=== PATIENT | male | born 1930 | race Caucasian/White ===

== ENCOUNTER → 2017-05-31 | Day surgery (SDC) | payer MEDICARE ==
[~2017-05-31] MED LIST: BUPIVACAINE/EPINEPHRINE 0.25% 50 ML VIAL ONE; LACTATED RINGER'S 1000 ML INJ 1,000 ML ONE; PROPOFOL 200 MG/20 ML AMP IV ONE; ceFAZolin 2 GM PREMIX 50 ML ONE
--- NOTE | 2017-05-31 12:05 | TN ---
cc: BETSY ASIF DATE OF SURGERY 05/31/2017 PREOPERATIVE DIAGNOSIS Recurrent left lower leg sarcoma. POSTOPERATIVE DIAGNOSIS Recurrent left lower leg sarcoma. 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 ATTENDING SURGEON MD Faisal CAUSE ANALYST Dre Pascual MS3. FINDINGS A 5-cm x 5-cm well encapsulated sarcoma deep to the subcutaneous planes involving tendon and muscle with grossly negative margins. BLOOD LOSS Less than 10 cc. 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 The patient previously underwent resection of a sarcoma as well as resection of recurrence several years ago. The patient developed a local recurrence and was referred to Surgical Oncology for evaluation and possible resection. Chest x-ray showed no evidence of distant metastasis. I had discussion with the patient's family due to the patient's dementia and palliative care goals. They did not wish for a curative intent but rather palliative resection as the tumor was enlarging and causing the patient discomfort. I did recommend resection due to the propensity of the tumor to continue to grow and cause increasing symptoms, negatively affecting the patient's quality of life. I did recommend complete resection to decrease local recurrence and to further palliate the patient. The risks, benefits and alternatives were discussed with the family and they agreed to undergo the procedure. PROCEDURE The patient was taken to the operating room at the [facility] and placed under TIVA. The left lower extremity was prepped and draped in sterile fashion. Time-out was performed. The area of the planned excision was localized with 0.25% Marcaine with epinephrine. A small elliptical incision approximately 6 cm was made in line with the leg over the area of the proximal mass distal to the lateral tibial plateau. We dissected down to the subcutaneous tissue and to the fascia with the Bovie electrocautery. We did excise some overlying fascia and muscle over the lateral compartment and all the tumor. We had grossly negative margins and we completely resected this with the Bovie electrocautery. This was again well encapsulated, was 5-cm x 5-cm in size. We did irrigate out the cavity and all suctioning was clear. We did turn our attention towards closure. We placed 3-0 deep dermal Vicryl sutures followed by 4-0 Monocryl and Dermabond on the skin. We placed an Mike wrap and a bandage as well as hemostatic dressing. The patient was reversed from the anesthesia and taken to the PACU in stable condition. The patient tolerated the procedure well. No apparent complications. All counts were correct. I was present and scrubbed for the entire procedure. MD MARZENA Jerome/SSB /11:40 AM /11:57 AM
== END | disposition home or self-care (01) ==
LOC: ESDC 08:09
PROVIDERS: ATTEND Surgery
DX: C44.709 Unspecified malignant neoplasm of skin of left lower limb, including hip (principal)
CPT/HCPCS: 01470; 27616; 88307; J0690; J3010; J7120; 88305

== ENCOUNTER 2017-07-15 17:52 | Inpatient (IN) | payer MEDICARE ==
[~2017-07-15] VITALS: Ht 167.6 cm; Wt 73.4 kg
[2017-07-15 18:49] VITALS: BP 162/68; PULSE 53; RESP 20; TEMP 98.6; O2SAT 98
[2017-07-15 19:28] LABS: BASOPHIL % 0.4 % (0.0-2.0); EOSINOPHIL % 0.1 % (0.0-4.0); HEMATOCRIT 42.9 % (39.0-51.0); HEMO FLAGS DIFF FINAL; LYMPH % 3.8 % (9.0-44.0); LYMPHOCYTE # 0.4 TH/MM3 (1.0-4.8); MEAN CELL VOLUME 95.7 FL (80.0-100.0); MEAN CORPUSCULAR HEMOGLOBIN 31.6 PG (27.0-34.0); MEAN CORPUSCULAR HGB CONC 33.1 % (32.0-36.0); MONO % 7.5 % (0.0-8.0); NEUT % 88.2 % (16.0-70.0); PLATELET COUNT 116 TH/MM3 (150-450); RED BLOOD COUNT 4.48 MIL/MM3 (4.50-5.90); WHITE BLOOD COUNT 11.3 TH/MM3 (4.0-11.0)
[2017-07-15] MEDS ORDERED: ZOLO50TA PO (19:39)
[2017-07-15] MEDS ORDERED: PROS5TAB PO (19:39)
[2017-07-15] MEDS ORDERED: NAME10TA PO (19:39)
[2017-07-15] MEDS ORDERED: TAMS0.4C4 PO (19:39)
[2017-07-15] MEDS ORDERED: ARIC10TA2 PO (19:39)
[2017-07-15 19:45] LABS: ANION GAP 6 MEQ/L (5-15); BICARBONATE 27.7 MEQ/L (21.0-32.0); BLOOD UREA NITROGEN 20 MG/DL (7-18); CHLORIDE 110 MEQ/L (98-107); GLOMERULAR FILTRATION RATE 77 ML/MIN (>89); MAGNESIUM 1.9 MG/DL (1.5-2.5); POTASSIUM 3.8 MEQ/L (3.5-5.1); SODIUM (NA) 144 MEQ/L (136-145)
[2017-07-15 19:54] LABS: APTT (PATIENT) 23.2 SEC (24.3-30.1); INTERNATIONAL NORMALIZED RATIO 1.1 RATIO; PROTHROMBIN TIME - PATIENT 12.3 SEC (9.8-11.6)
[2017-07-15 20:01] LABS: CREATINE KINASE 269 U/L (39-308)
--- NOTE | 2017-07-15 20:08 | PD ---
HPI Chief Complaint: Fall Time Seen by Provider: 18:53 Travel History International Travel<30 days: No Contact w/Intl Traveler<30days: No Traveled to known affect area: No History of Present Illness HPI 86-year-old male that presents to the ED for evaluation of fall. Patient comes here by ambulance for evaluation of fall. Patient had an unwitnessed fall while going from his room to the bathroom. Unclear as to what happened as patient has a history dementia and cannot really tell us any information about it. He was found by one of the staff members at the [facility] where he stays. He was brought here for evaluation. He does have skin tears to his elbows bilaterally and has bruising on the left shoulder as well as the left wrist. Patient also has a small abrasion to his left eyebrow. He does not remember what happened. He states having some chest discomfort as well but when I asked him personally he states that he does not. This was told by the family member who is at bedside. He has a history of dementia and lives in the [facility] for care. He has no other medical issues. He usually ambulates with some assistance. He does have bad knees. Patient takes no blood thinners. Unclear as to hold him he was on the floor before the found him. He denies any other medical issues. History is mostly obtained from the ED nurse as well as family members patient himself is not a good historian. He himself denies any pain. PFSH Social History Alcohol Use: No Tobacco Use: No Substance Use: No Allergies-Medications (Allergen,Severity, Reaction): Coded Allergies: No Known Allergies (Unverified , 07/15/17) Reported Meds & Prescriptions Reported Meds & Active Scripts Active Reported Namenda (Memantine) 10 Mg Tab 10 Mg PO BID Zoloft (Sertraline HCl) 50 Mg Tab 50 Mg PO DAILY Aricept (Donepezil HCl) 10 Mg Tablet 10 Mg PO DAILY Proscar (Finasteride) 5 Mg Tab 5 Mg PO DAILY Do not crush. Tamsulosin (Tamsulosin HCl) 0.4 Mg Cap 0.4 Mg PO DAILY Review of Systems Except as stated in HPI: all other systems reviewed are Neg Physical Exam Narrative GENERAL: SKIN: Warm and dry. Patient has bilateral skin tears on both elbows bilaterally. Some bleeding noted. Neurovascular intact. Skin there is a less than 1 mm deep. Full range of motion of the elbows bilaterally. HEAD: Atraumatic. Normocephalic. EYES: Pupils equal and round. No scleral icterus. No injection or drainage. ENT: No nasal bleeding or discharge. Mucous membranes pink and moist. Tongue is midline. No uvula deviation. NECK: Trachea midline. No JVD. CARDIOVASCULAR: Regular rate and rhythm. No murmurs, S3, S4. RESPIRATORY: No accessory muscle use. Clear to auscultation. Breath sounds equal bilaterally. GASTROINTESTINAL: Abdomen soft, non-tender, nondistended. Hepatic and splenic margins not palpable. MUSCULOSKELETAL: Extremities without clubbing, cyanosis, or edema. No obvious deformities. Full range of motion of the upper and lower extremities bilaterally. 2+ pulses bilaterally. Patient has a bruise to the left wrist as well as to the left shoulder but able to move it fully. No obvious rib pain. No lumbar, thoracic, cervical spine tenderness to palpation. Full range of motion of the head. Full range of motion lower extremities. No obvious deformities or bruising noted on the lower extremities. NEUROLOGICAL: Awake and alert. No obvious cranial nerve deficits. Motor grossly within normal limits. Five out of 5 muscle strength in the arms and legs. Normal speech. PSYCHIATRIC: Appropriate mood and affect; insight and judgment normal. Data Data Last Documented VS Vital Signs Date Time Temp Pulse Resp B/P (MAP) Pulse Ox O2 Delivery O2 Flow Rate FiO2 07/15/17 18:49 98.6 53 20 162/68 (99) 98 Orders Orders Complete Blood Count With Diff (07/15/17 18:59) Basic Metabolic Panel (Bmp) (07/15/17 18:59) Ckmb (Isoenzyme) Profile (07/15/17 18:59) Troponin I (07/15/17 18:59) Prothrombin Time / Inr (Pt) (07/15/17 18:59) Act Partial Throm Time (Ptt) (07/15/17 18:59) Magnesium (Mg) (07/15/17 18:59) Thyroid Stimulating Hormone (07/15/17 18:59) Chest, Single Ap (07/15/17 18:59) Ct Brain W/O Iv Contrast(Rout) (07/15/17 18:59) Iv Access Insert/Monitor (07/15/17 18:59) Ecg Monitoring (07/15/17 18:59) Oximetry (07/15/17 18:59) Ct Cerv Spine W/O Contrast (07/15/17 ) Wrist, Complete (Cgt3gyr) (07/15/17 ) Elbow, Limited (Ap&Lat) (07/15/17 ) Elbow, Complete (4 Vws) (07/15/17 ) Shoulder, Complete (>2vws) (07/15/17 ) Pelvis, Ap Only (Routine) (07/15/17 ) Wound Care (07/15/17 19:02) CKMB (07/15/17 19:10) CKMB% (07/15/17 19:10) Electrocardiogram (07/15/17 ) Ct Thorax/ Chest W Iv Contrast (07/15/17 ) Admit Order (Ed Use Only) (07/15/17 21:59) Memantine (Namenda) (07/16/17 09:00) Tamsulosin (Flomax) (07/16/17 09:00) (Nf) Donepezil Hcl (Aricept) (07/16/17 09:00) Labs Laboratory Tests Test 07/15/17 19:10 White Blood Count 11.3 TH/MM3 Red Blood Count 4.48 MIL/MM3 Hemoglobin 14.2 GM/DL Hematocrit 42.9 % Mean Corpuscular Volume 95.7 FL Mean Corpuscular Hemoglobin 31.6 PG Mean Corpuscular Hemoglobin Concent 33.1 % Red Cell Distribution Width 15.0 % Platelet Count 116 TH/MM3 Mean Platelet Volume 10.0 FL Neutrophils (%) (Auto) 88.2 % Lymphocytes (%) (Auto) 3.8 % Monocytes (%) (Auto) 7.5 % Eosinophils (%) (Auto) 0.1 % Basophils (%) (Auto) 0.4 % Neutrophils # (Auto) 10.0 TH/MM3 Lymphocytes # (Auto) 0.4 TH/MM3 Monocytes # (Auto) 0.9 TH/MM3 Eosinophils # (Auto) 0.0 TH/MM3 Basophils # (Auto) 0.0 TH/MM3 CBC Comment DIFF FINAL Differential Comment Prothrombin Time 12.3 SEC Prothromb Time International Ratio 1.1 RATIO Activated Partial Thromboplast Time 23.2 SEC Blood Urea Nitrogen 20 MG/DL Creatinine 0.93 MG/DL Random Glucose 88 MG/DL Calcium Level 9.0 MG/DL Magnesium Level 1.9 MG/DL Sodium Level 144 MEQ/L Potassium Level 3.8 MEQ/L Chloride Level 110 MEQ/L Carbon Dioxide Level 27.7 MEQ/L Anion Gap 6 MEQ/L Estimat Glomerular Filtration Rate 77 ML/MIN Total Creatine Kinase 269 U/L Creatine Kinase MB 2.7 NG/ML Troponin I 0.12 NG/ML Thyroid Stimulating Hormone 3rd Gen 1.320 uIU/ML MDM Medical Decision Making Medical Screen Exam Complete: Yes Emergency Medical Condition: Yes Medical Record Reviewed: Yes Interpretation(s) CBC & BMP Diagram 07/15/17 19:10 Calcium Level 9.0, Magnesium Level 1.[address] 07/15/17 1859 Signed Impressions: Service Date/Time: Saturday, July 15, 2017 19:34 - CONCLUSION: 1. No acute abnormalities seen. 2. Chronic atrophy and a small area of encephalomalacia at the medial left temporal lobe. Lawrence Bruno MD Wrist X-Ray 07/15/17 0000 Signed Impressions: Service Date/Time: Saturday, July 15, 2017 19:16 - CONCLUSION: No acute disease. Lawrence Bruno MD Shoulder X-Ray 07/15/17 0000 Signed Impressions: Service Date/Time: Saturday, July 15, 2017 19:25 - CONCLUSION: No acute disease. Lawrence Bruno MD Pelvis X-Ray 07/15/17 0000 Signed Impressions: Service Date/Time: Saturday, July 15, 2017 19:30 - CONCLUSION: No definite acute abnormality seen. Lawrence Bruno MD Elbow X-Ray 07/15/17 0000 Signed Impressions: Service Date/Time: Saturday, July 15, 2017 19:18 - CONCLUSION: Unremarkable examination of the left elbow. Lawrence Bruno MD Elbow X-Ray 07/15/17 0000 Signed Impressions: Service Date/Time: Saturday, July 15, 2017 19:23 - CONCLUSION: No acute disease. Lawrence Bruno MD Cervical Spine CT 07/15/17 0000 Signed Impressions: Service Date/Time: Saturday, July 15, 2017 19:34 - CONCLUSION: 1. No acute bony injury is seen. 2. Degenerative change involving the facet joints at multiple levels. Lawrence Bruno MD EKG shows atrial fib but no in RVR. No sign of acute ischemia or arrythmia read by me and attending. Troponin of 0.12 CK neg Differential Diagnosis Fall versus syncope versus head injury versus ACS versus dementia versus normal exam versus fracture versus contusion versus bruise Narrative Course 86-year-old male that presents to the ED for evaluation of fall. Patient was properly examined and was found to have signs and symptoms consistent with fall. Unclear syncope or not as patient is about historian. Labs and imaging were ordered. Labs and imaging showed positive troponin and mass to the right chest. Case discussed in my attending who agrees with admission. This was discussed with the family who is in agreement with this. Patient had his wound to his left eyebrow fixed by me as stated in procedure note. Wound care was done by ED nurse. CT of the thorax was ordered by me to further evaluate this mass in the right lung as family is not aware of anything on the chest x-ray. Per family he actually had a chest x-ray recently and was negative. 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 Case discussed with nurse practitioner for [facility] as well agrees to admission. Patient was admitted. Diagnosis Primary Impression: Syncope Qualified Codes: R55 - Syncope and collapse Additional Impressions: Head injury, acute Qualified Codes: S09.90XA - Unspecified injury of head, initial encounter Eyebrow laceration Qualified Codes: S01.112A - Laceration without foreign body of left eyelid and periocular area, initial encounter Skin tear of elbow without complication Qualified Codes: S51.011A - Laceration without foreign body of right elbow, initial encounter Skin tear of left elbow without complication Qualified Codes: S51.012A - Laceration without foreign body of left elbow, initial encounter Mass of right lung Fall Qualified Codes: W19.XXXA - Unspecified fall, initial encounter Elevated troponin Admitting Information Admitting Physician Requests: Admit Ayo Gyu Jul 15, 2017 20:08
[2017-07-15 20:14] LABS: CKMB 2.7 NG/ML (0.5-3.6)
--- NOTE | 2017-07-15 20:37 | RADRPT ---
EXAM DATE/TIME: 07/15/2017 19:16 [facility] COMPARISON: No previous studies available for comparison. INDICATIONS : Left wrist pain, bruising post fall today MEDICAL HISTORY : None. SURGICAL HISTORY : None. ENCOUNTER: Initial ACUITY: 1 day PAIN SCORE: 5/10 LOCATION: Left entire wrist FINDINGS: Three view examination of the left wrist demonstrates no soft tissue swelling, dislocation, or fractu re. The carpal bones are in normal alignment. The joint spaces are maintained. The bones are osteop enic. CONCLUSION: No acute disease. Lawrence Bruno MD on July 15, 2017 at 20:34 Board Certified Radiologist. This report was verified electronically.
--- NOTE | 2017-07-15 20:37 | RADRPT ---
EXAM DATE/TIME: 07/15/2017 19:18 [facility] COMPARISON: No previous studies available for comparison. INDICATIONS : Left elbow pain post fall today MEDICAL HISTORY : None. SURGICAL HISTORY : None. ENCOUNTER: Initial ACUITY: 1 day PAIN SCORE: 5/10 LOCATION: Left posterior elbow FINDINGS: Multiple view examination of the left elbow demonstrates no soft tissue swelling, joint effusion, or fracture. The osseous structures are in normal alignment. Bony mineralization is normal. CONCLUSION: Unremarkable examination of the left elbow. Lawrence Bruno MD on July 15, 2017 at 20:35 Board Certified Radiologist. This report was verified electronically.
--- NOTE | 2017-07-15 20:42 | RADRPT ---
EXAM DATE/TIME: 07/15/2017 19:23 [facility] COMPARISON: No previous studies available for comparison. INDICATIONS : Right elbow pain post fall today MEDICAL HISTORY : None. SURGICAL HISTORY : None. ENCOUNTER: Initial ACUITY: 1 day PAIN SCORE: 5/10 LOCATION: Right posterior elbow FINDINGS: Two view examination of the right elbow demonstrates no soft tissue swelling, joint effusion, fractur e or dislocation. The bones are osteopenic. CONCLUSION: No acute disease. Lawrence Bruno MD on July 15, 2017 at 20:39 Board Certified Radiologist. This report was verified electronically.
--- NOTE | 2017-07-15 20:42 | RADRPT ---
EXAM DATE/TIME: 07/15/2017 19:25 [facility] COMPARISON: No previous studies available for comparison. INDICATIONS : Left shoulder pain post fall today MEDICAL HISTORY : None. SURGICAL HISTORY : None. ENCOUNTER: Initial ACUITY: 1 day PAIN SCORE: 4/10 LOCATION: Left entire shoulder FINDINGS: Multiple view examination of the left shoulder demonstrates no evidence of fracture or dislocation. The glenohumeral and acromioclavicular joints are maintained. There is normal range of motion betwee n internal and external rotation. The bones are osteopenic. CONCLUSION: No acute disease. Lawrence Bruno MD on July 15, 2017 at 20:40 Board Certified Radiologist. This report was verified electronically.
--- NOTE | 2017-07-15 20:45 | RADRPT ---
EXAM DATE/TIME: 07/15/2017 19:14 [facility] COMPARISON: No previous studies available for comparison. INDICATIONS : Trauma to chest postfall today MEDICAL HISTORY : None. SURGICAL HISTORY : None. ENCOUNTER: Initial ACUITY: 1 day PAIN SCORE: 0/10 LOCATION: Bilateral chest FINDINGS: The patient is rotated towards the left. The heart size is grossly normal. The lungs d emonstrate diffuse increased interstitial markings. There is further increased density seen at the l eft base with silhouetting of the left hemidiaphragm. There also appears to be some increased density seen at the right upper lung. CONCLUSION: 1. Diffuse prominence of the interstitial markings likely representing underlying interstitial diseas e or edema. 2. Increased density at the left base representing some degree of atelectasis or consolidation. Some degree of left effusion cannot be excluded. 3. Possible focal consolidation or mass in the right upper lung. This should be followed with future chest x-rays and further evaluated with a CT examination if it persists. Lawrence Bruno MD on July 15, 2017 at 20:33 Board Certified Radiologist. This report was verified electronically.
--- NOTE | 2017-07-15 20:49 | RADRPT ---
EXAM DATE/TIME: 07/15/2017 19:30 [facility] COMPARISON: No previous studies available for comparison. INDICATIONS : Trauma to pelvis post fall today MEDICAL HISTORY : None. SURGICAL HISTORY : ORIF left hip ENCOUNTER: Initial ACUITY: 1 day PAIN SCORE: 0/10 LOCATION: Pelvis FINDINGS: A single frontal view of the pelvis demonstrates no evidence of fracture. There is surgical hardware at the proximal left femur from prior injury. There is degenerative change in the lower lumbar spine . The bones are osteopenic. The bony pelvic ring is intact. The soft tissues are intact. CONCLUSION: No definite acute abnormality seen. Lawrence Bruno MD on July 15, 2017 at 20:47 Board Certified Radiologist. This report was verified electronically.
--- NOTE | 2017-07-15 20:52 | RADRPT ---
EXAM DATE/TIME: 07/15/2017 19:34 [facility] COMPARISON: No previous studies available for comparison. INDICATIONS : Trauma; fall. RADIATION DOSE: 39.12 CTDIvol (mGy) MEDICAL HISTORY : None SURGICAL HISTORY : None. ENCOUNTER: Initial ACUITY: 1 day PAIN SCALE: 6/10 LOCATION: cranial TECHNIQUE: Multiple contiguous axial images were obtained of the head. Using automated exposure control and adj ustment of the mA and/or kV according to patient size, radiation dose was kept as low as reasonably a chievable to obtain optimal diagnostic quality images. DICOM format image data is available electro nically for review and comparison. FINDINGS: CEREBRUM: The ventricles and cortical sulci are widened. There is a focal area of encephalomalacia at the infer ior medial left temporal lobe. The there is a possible area mild this ablation of the superior medial left parietal lobe versus a prominent sulcus in this region. There does appear to be a thin rim of g ray matter suggesting this is likely a prominent sulcus. No evidence of midline shift, mass lesion, hemorrhage or acute infarction. No extra-axial fluid collections are seen. POSTERIOR FOSSA: The cerebellum and brainstem are intact. The 4th ventricle is midline. The cerebellopontine angle i s unremarkable. EXTRACRANIAL: The visualized portion of the orbits is intact. There is mucosal disease in the posterior right maxil laci sinus. SKULL: The calvaria is intact. No evidence of skull fracture. CONCLUSION: 1. No acute abnormalities seen. 2. Chronic atrophy and a small area of encephalomalacia at the medial left temporal lobe. Lawrence Bruno MD on July 15, 2017 at 20:48 Board Certified Radiologist. This report was verified electronically.
--- NOTE | 2017-07-15 20:56 | RADRPT ---
EXAM DATE/TIME: 07/15/2017 19:34 [facility] COMPARISON: No previous studies available for comparison. INDICATIONS : Trauma; fall. RADIATION DOSE: 21.34 CTDIvol (mGy) MEDICAL HISTORY : None SURGICAL HISTORY : None. ENCOUNTER: Initial ACUITY: 1 day PAIN SCALE: 4/10 LOCATION: neck TECHNIQUE: Volumetric scanning of the cervical spine was performed. Multiplanar reconstructions in the sagittal, coronal and oblique axial planes were performed. Using automated exposure control and adjustment o f the mA and/or kV according to patient size, radiation dose was kept as low as reasonably achievable to obtain optimal diagnostic quality images. DICOM format image data is available electronically f or review and comparison. FINDINGS: VERTEBRAE: Normal vertebral body height. ALIGNMENT: No evidence of subluxation. C2-C3: The bony spinal canal is normal in size. No evidence of disc bulge or herniation. The neural forami na are bilaterally patent. There is right facet hypertrophy. C3-C4: The bony spinal canal is normal in size. No evidence of disc bulge or herniation. There is left fac et hypertrophy causing narrowing of the left neural foramina. The right neural foramen is patent. C4-C5: The bony spinal canal is normal in size. No evidence of disc bulge or herniation. The neural forami na are bilaterally patent. There is bilateral facet hypertrophy. C5-C6: The bony spinal canal is normal in size. No evidence of disc bulge or herniation. The neural forami na are bilaterally patent. There is bilateral facet hypertrophy. C6-C7: The bony spinal canal is normal in size. No evidence of disc bulge or herniation. The neural forami na are bilaterally patent. There is bilateral facet hypertrophy being worse on the left. C7-T1: The bony spinal canal is normal in size. No evidence of disc bulge or herniation. The neural forami na are bilaterally patent. There is bilateral facet hypertrophy. CONCLUSION: 1. No acute bony injury is seen. 2. Degenerative change involving the facet joints at multiple levels. Lawrence Bruno MD on July 15, 2017 at 20:51 Board Certified Radiologist. This report was verified electronically.
[2017-07-15] MEDS ORDERED: IOHEXOL 350 MG/ML 10 ML VIAL (for RAD DIAG) IVCONTRAST ONE (22:31)
--- NOTE | 2017-07-15 23:16 | RADRPT ---
EXAM DATE/TIME: 07/15/2017 22:24 [facility] COMPARISON: No previous studies available for comparison. INDICATIONS : Trauma; fall. IV CONTRAST: 80 cc Omnipaque 350 (iohexol) IV RADIATION DOSE: 5.10 CTDIvol (mGy) MEDICAL HISTORY : None SURGICAL HISTORY : None. ENCOUNTER: Initial ACUITY: 1 day PAIN SCALE: 5/10 LOCATION: chest TECHNIQUE: Volumetric scanning of the chest was performed. Using automated exposure control and adjustment of t he mA and/or kV according to patient size, radiation dose was kept as low as reasonably achievable to obtain optimal diagnostic quality images. DICOM format image data is available electronically for review and comparison. Follow-up recommendations for detected pulmonary nodules are based at a minimum on nodule size and pa tient risk factors according to Fleischner Society Guidelines. FINDINGS: There is bilateral pleural thickening and trace loculated right pleural effusion posteriorly. There i s also a small loculated left pleural effusion extending into the upper left hemithorax, probably chr onic. No acute bony abnormalities. Moderate coronary calcifications. No significant pericardial fluid . No acute findings in the upper abdomen. CONCLUSION: 1. Negative for acute traumatic injury in the thorax. 2. Bilateral chronic appearing pleural thickening and small loculated areas of pleural fluid. 3. Moderate coronary calcifications. Bones are osteopenic. Mynor Porras MD on July 15, 2017 at 23:12 Board Certified Radiologist. This report was verified electronically.
[2017-07-15] MEDS ORDERED: LACTULOSE SYRUP 20 GM/30 ML CUP PO PRN (23:45)
[2017-07-15] MEDS ORDERED: SENNOSIDES 8.6 MG TAB PO PRN (23:45)
[2017-07-15] MEDS ORDERED: NALOXONE HCL 0.4 MG/ML AMP IV PRN (23:45)
[2017-07-15] MEDS ORDERED: MAGNESIUM HYDROXIDE SUSP 30 ML CUP PO PRN (23:45)
[2017-07-15] MEDS ORDERED: SODIUM CHLORIDE 0.9% FLUSH 10 ML FLUSH IV FLUSH PRN (23:45)
[2017-07-15] MEDS ORDERED: ONDANSETRON HCL 4 MG/2 ML VIAL IVP PRN (23:45)
[2017-07-15] MEDS ORDERED: BISACODYL 10 MG SUPP RECTAL PRN (23:45)
[2017-07-15 23:48] VITALS: BP 134/71
[2017-07-16] VITALS (7 sets, daily range): BP systolic 101–164; BP diastolic 52–77; PULSE 43–63; RESP 16–20; TEMP 97–98; O2SAT 92–96
[2017-07-16] MEDS: SODIUM CHLOR 0.9% 1000 ML INJ 1,000 ML IV SCH ×3 (00:58→18:43)
[2017-07-16 07:20] LABS: AUTOMATED NEUTROPHIL # 5.3 TH/MM3 (1.8-7.7); BASOPHIL % 0.7 % (0.0-2.0); EOSINOPHIL % 0.4 % (0.0-4.0); HEMATOCRIT 42.2 % (39.0-51.0); HEMO FLAGS DIFF FINAL; LYMPH % 8.9 % (9.0-44.0); LYMPHOCYTE # 0.6 TH/MM3 (1.0-4.8); MEAN CELL VOLUME 94.5 FL (80.0-100.0); MEAN CORPUSCULAR HEMOGLOBIN 31.9 PG (27.0-34.0); MEAN CORPUSCULAR HGB CONC 33.7 % (32.0-36.0); MONO % 10.9 % (0.0-8.0); NEUT % 79.1 % (16.0-70.0); PLATELET COUNT 123 TH/MM3 (150-450); RED BLOOD COUNT 4.46 MIL/MM3 (4.50-5.90); RED CELL DISTRIBUTION WIDTH 14.7 % (11.6-17.2); WHITE BLOOD COUNT 6.7 TH/MM3 (4.0-11.0)
[2017-07-16 07:40] LABS: BICARBONATE 27.5 MEQ/L (21.0-32.0); POTASSIUM 3.7 MEQ/L (3.5-5.1)
[2017-07-16] MEDS: SODIUM CHLORIDE 0.9% FLUSH 10 ML FLUSH IV FLUSH SCH ×2 (09:00→20:26)
[2017-07-16] MEDS ORDERED: DONEPEZIL HCL 5 MG TAB PO SCH (09:00)
[2017-07-16] MEDS ORDERED: MEMANTINE HCL 10 MG TAB PO SCH (09:00)
[2017-07-16] MEDS: DOCUSATE SODIUM 50 MG/SENNA 8.6 MG TAB PO SCH ×2 (09:21→20:26)
[2017-07-16] MEDS: TAMSULOSIN HCL 0.4 MG CAP PO SCH (09:21)
--- NOTE | 2017-07-16 09:26 | EKG ---
Date Performed: 07/15/2017 Time Performed: 20:17:49 PTAGE: 86 years EKG: ATRIAL FIBRILLATION WITH SLOW VENTRICULAR RESPONSE BORDERLINE LEFT AXIS DEVIATION ABNORMAL RHYTHM ECG NO PREVIOUS TRACING DOCTOR: Carlo Tanner Interpretating Date/Time 07/16/2017 09:26:02
--- NOTE | 2017-07-16 10:20 | HHI.HP ---
HPI Service [facility] Primary Care Physician David Alex, DO Admission Diagnosis fall, syncope, positive troponin, skin tears Diagnoses: Chief Complaint: fall, syncope (Lara Hassan) Travel History International Travel<30 Days: No Contact w/Intl Traveler <30 Da: No Traveled to Known Affected Are: No (Lara Hassan) History of Present Illness This is a pleasant 86-year-old elderly male who is a resident from an assisted living facility, has significant past medical history of dementia and sarcoma. Patient was brought in via ambulance for evaluation of fall. Fall wasn't witnessed, it occur while patient was in his room going to the bathroom. Patient is not able to provide any information as he has dementia. He was found by staff members. Patient had abrasions to his elbows and bruising to the left shoulder and left wrist. He also had an abrasion to his left eyebrow. He denies any chest pain, no shortness of breath. His only complaint at this time is the left hand. In the emergency room, patient was evaluated laboratory workup was completed. He was noted with an elevated troponin. The rest of the laboratory workup was essentially unremarkable. Chest x-ray show possibility of a focal consolidation or mass in the right upper lung. A CT of the chest was completed, no mass was noted, there are bilateral chronic appearing pleural thickening and small loculated areas of pleural fluid. Moderate coronary calcifications. CT of the head was negative. EKG was completed, a shows atrial fibrillation with slow ventricular response. Throughout the night, heart rate has dropped down to 38. I spoke to the patient's son-in-law who endorses that patient typically runs a slow heart rate of 50s, has never seen a manager water. Denies any history of coronary artery disease, no dysrhythmia. Patient is not on any beta blockers, he is on Aricept and Namenda. At this time , patient is pleasantly confused, he denies any chest pain, no shortness of breath, no dizziness. Follows commands appropriately. According to the son-in- law, other than the dementia the patient has been very healthy. Patient is admitted for further evaluation and treatment. (Lara Hassan) Review of Systems ROS Limitations: Clinical Condition, Altered Mental Status, Poor Historian (Lara Hassan) Past Family Social History Past Medical History Dementia Sarcoma BPH Runs low heart rate 50s. Has never seen a manager water. 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 Tamsulosin (Tamsulosin HCl) 0.4 Mg Cap 0.4 Mg PO DAILY (Lara Hassan) Allergies: Coded Allergies: No Known Allergies (Unverified , 07/15/17) Active Ordered Medications Inpatient Medications Bisacodyl (Dulcolax Supp) 10 mg DAILY PRN RECTAL SEVERE CONSITIPATION; Start at 23:45 Donepezil HCl (Aricept) 10 mg DAILY PO ; Start 07/16/17 at 09:00 Lactulose (Lactulose Liq) 30 ml DAILY PRN PO SEVERE CONSITIPATION; Start at 23:45 Magnesium Hydroxide (Milk Of Magnesia Liq) 30 ml Q12H PRN PO MILD - MODERATE CONSTIPATION; Start 07/15/17 at 23:45 Memantine (Namenda) 10 mg BID PO Last administered on 07/16/17 09:21; Start 07/16/17 at 09:00 Naloxone HCl (Narcan Inj) 0.4 mg UNSCH PRN IV SEE LABEL COMMENTS; Start at 23:45 Ondansetron HCl (Zofran Inj) 4 mg Q6H PRN IVP NAUSEA OR VOMITING; Start at 23:45 Senna/Docusate Sodium (Brigitte-Colace) 1 tab BID PO Last administered on 07/16/17 09:21; Start 07/16/17 at 09:00 Sennosides (Senokot) 17.2 mg Q12H PRN PO MODERATE - SEVERE CONSTIPATION; Start 07/15/17 at 23:45 Sodium Chloride (NS Flush) 2 ml BID IV FLUSH ; Start 07/16/17 at 09:00 Tamsulosin HCl (Flomax) 0.4 mg DAILY PO Last administered on 07/16/17t 09:21; Start 07/16/17 at 09:00 Family History Unable to obtain Social History Patient resides at a correction facility, patient quit smoking many years ago. No alcohol, no substance abuse. Patient is a . Has grown children who live nearby and are very supportive. (Lara Hassan) Physical Exam Vital Signs Vital Signs Date Time Temp Pulse Resp B/P (MAP) Pulse Ox O2 Delivery O2 Flow Rate FiO2 07/16/17 08:00 97.0 45 16 106/59 (75) 92 07/16/17 04:00 97.5 45 20 142/64 (90) 95 07/16/17 00:35 97.6 51 20 164/77 (106) 96 07/15/17 23:48 50 18 134/71 (92) 97 07/15/17 18:49 98.6 53 20 162/68 (99) 98 Physical Exam GENERAL: This is a well-nourished, well-developed patient, in no apparent distress. SKIN: Bruises upper arms, left forehead, laceration left eyebrow with steristrip. Skin tear right elbow HEAD: Atraumatic. Normocephalic. No temporal or scalp tenderness. EYES: Pupils equal round and reactive. Extraocular motions intact. No scleral icterus. No injection or drainage. ENT: Nose without bleeding, purulent drainage or septal hematoma. Throat without erythema, tonsillar hypertrophy or exudate. Uvula midline. Airway patent. NECK: Trachea midline. No JVD or lymphadenopathy. Supple, nontender, no meningeal signs. CARDIOVASCULAR: Regular rate and rhythm without murmurs, gallops, or rubs. RESPIRATORY: Clear to auscultation. Breath sounds equal bilaterally. No wheezes , rales, or rhonchi. GASTROINTESTINAL: Abdomen soft, non-tender, nondistended. No hepato-splenomegaly , or palpable masses. No guarding. MUSCULOSKELETAL: Bruising left hand, swelling of left hand small finger. NEUROLOGICAL: awake, oriented to self and place. Demented. Laboratory Laboratory Tests Test 07/15/17 19:10 07/16/17 01:19 07/16/17 06:29 White Blood Count 11.3 6.7 Red Blood Count 4.48 4.46 Hemoglobin 14.2 14.2 Hematocrit 42.9 42.2 Mean Corpuscular Volume 95.7 94.5 Mean Corpuscular Hemoglobin 31.6 31.9 Mean Corpuscular Hemoglobin Concent 33.1 33.7 Red Cell Distribution Width 15.0 14.7 Platelet Count 116 123 Mean Platelet Volume 10.0 9.4 Neutrophils (%) (Auto) 88.2 79.1 Lymphocytes (%) (Auto) 3.8 8.9 Monocytes (%) (Auto) 7.5 10.9 Eosinophils (%) (Auto) 0.1 0.4 Basophils (%) (Auto) 0.4 0.7 Neutrophils # (Auto) 10.0 5.3 Lymphocytes # (Auto) 0.4 0.6 Monocytes # (Auto) 0.9 0.7 Eosinophils # (Auto) 0.0 0.0 Basophils # (Auto) 0.0 0.0 CBC Comment DIFF FINAL DIFF FINAL Differential Comment Prothrombin Time 12.3 Prothromb Time International Ratio 1.1 Activated Partial Thromboplast Time 23.2 Blood Urea Nitrogen 20 17 Creatinine 0.93 0.90 Random Glucose 88 90 Calcium Level 9.0 8.7 Magnesium Level 1.9 Sodium Level 144 146 Potassium Level 3.8 3.7 Chloride Level 110 109 Carbon Dioxide Level 27.7 27.5 Anion Gap 6 10 Estimat Glomerular Filtration Rate 77 80 Total Creatine Kinase 269 Creatine Kinase MB 2.7 Troponin I 0.12 0.25 0.21 Thyroid Stimulating Hormone 3rd Gen 1.320 (Lara Hassan) Result Diagram: 07/16/17 0629 07/16/17628 Imaging Last Impressions Head CT 07/15/171858 Signed Impressions: Service Date/Time: Saturday, July 15, 2017 19:34 - CONCLUSION: 1. No acute abnormalities seen. 2. Chronic atrophy and a small area of encephalomalacia at the medial left temporal lobe. Lawrence Bruno MD Chest X-Ray 07/15/171858 Signed Impressions: Service Date/Time: Saturday, July 15, 2017 19:14 - CONCLUSION: 1. Diffuse prominence of the interstitial markings likely representing underlying interstitial disease or edema. 2. Increased density at the left base representing some degree of atelectasis or consolidation. Some degree of left effusion cannot be excluded. 3. Possible focal consolidation or mass in the right upper lung. This should be followed with future chest x-rays and further evaluated with a CT examination if it persists. Lawrence Bruno MD Wrist X-Ray 07/15/17 Signed Impressions: Service Date/Time: Saturday, July 15, 2017 19:16 - CONCLUSION: No acute disease. Lawrence Bruno MD Shoulder X-Ray 07/15/17 Signed Impressions: Service Date/Time: Saturday, July 15, 2017 19:25 - CONCLUSION: No acute disease. Lawrence Bruno MD Pelvis X-Ray 07/15/17 Signed Impressions: Service Date/Time: Saturday, July 15, 2017 19:30 - CONCLUSION: No definite acute abnormality seen. Lawrence Bruno MD Elbow X-Ray 07/15/17 Signed Impressions: Service Date/Time: Saturday, July 15, 2017 19:18 - CONCLUSION: Unremarkable examination of the left elbow. Lawrence Bruno MD Chest CT 07/15/17 Signed Impressions: Service Date/Time: Saturday, July 15, 2017 22:24 - CONCLUSION: 1. Negative for acute traumatic injury in the thorax. 2. Bilateral chronic appearing pleural thickening and small loculated areas of pleural fluid. 3. Moderate coronary calcifications. Bones are osteopenic. Mynor Porras MD Cervical Spine CT 07/15/17 Signed Impressions: Service Date/Time: Saturday, July 15, 2017 19:34 - CONCLUSION: 1. No acute bony injury is seen. 2. Degenerative change involving the facet joints at multiple levels. Lawrence Bruno MD (Lara Hassan) Caprini VTE Risk Assessment Caprini VTE Risk Assessment: Mod/High Risk (score >= 2) Caprini Risk Assessment Model Point Value = 1 Point Value = 2 Point Value = 3 Point Value = 5 Age 41-60 Minor surgery BMI > 25 kg/m2 Swollen legs Varicose veins or History of unexplained or recurrent spontaneous Oral contraceptives or hormone replacement Sepsis (< 1 month) Serious lung disease, including pneumonia (< 1 month) Abnormal pulmonary function Acute myocardial infarction Congestive heart failure (< 1 month) History of inflammatory bowel disease Medical patient at bed rest Age 61-74 Arthroscopic surgery Major open surgery (> 45 min) Laparoscopic surgery (> 45 min) Malignancy Confined to bed (> 72 hours) Immobilizing plaster cast Central venous access Age >= 75 History of VTE Family history of VTE Factor V Leiden Prothrombin [id number] Lupus anticoagulant Anticardiolipin antibodies Elevated serum homocysteine Heparin-induced thrombocytopenia Other congenital or acquired thrombophilia Stroke (< 1 month) Elective arthroplasty Hip, pelvis, or leg fracture Acute spinal cord injury (< 1 month) Prophylaxis Regimen Total Risk Factor Score Risk Level Prophylaxis Regimen 0-1 Low Early ambulation 2 Moderate Order ONE of the following: *Sequential Compression Device (SCD) *Heparin 5000 units SQ BID 3-4 Higher Order ONE of the following medications: *Heparin 5000 units SQ TID *Enoxaparin/Lovenox 40 mg SQ daily (WT < 150 kg, CrCl > 30 mL/min) *Enoxaparin/Lovenox 30 mg SQ daily (WT < 150 kg, CrCl > 10-29 mL/min) *Enoxaparin/Lovenox 30 mg SQ BID (WT < 150 kg, CrCl > 30 mL/min) AND/OR *Sequential Compression Device (SCD) 5 or more Highest Order ONE of the following medications: *Heparin 5000 units SQ TID (Preferred with Epidurals) *Enoxaparin/Lovenox 40 mg SQ daily (WT < 150 kg, CrCl > 30 mL/min) *Enoxaparin/Lovenox 30 mg SQ daily (WT < 150 kg, CrCl > 10-29 mL/min) *Enoxaparin/Lovenox 30 mg SQ BID (WT < 150 kg, CrCl > 30 mL/min) AND *Sequential Compression Device (SCD) (Lara Hassan) Assessment and Plan Problem List: (1) Elevated troponin ICD Codes: R74.8 - Abnormal levels of other serum enzymes Status: Acute (2) Syncope ICD Codes: R55 - Syncope and collapse Status: Acute (3) Fall ICD Codes: W19.XXXA - Unspecified fall, initial encounter Status: Acute (4) Skin tear of elbow without complication ICD Codes: S51.019A - Laceration without foreign body of unspecified elbow, initial encounter Status: Acute (5) Skin tear of left elbow without complication ICD Codes: S51.012A - Laceration without foreign body of left elbow, initial encounter Status: Acute (6) Eyebrow laceration ICD Codes: S01.119A - Laceration without foreign body of unspecified eyelid and periocular area, initial encounter Status: Acute (7) Dementia ICD Codes: F03.90 - Unspecified dementia without behavioral disturbance Status: Chronic (8) Atrial fibrillation ICD Codes: I48.91 - Unspecified atrial fibrillation Status: Acute Assessment and Plan Admit to Dr. Bennett 86-year-old elderly male history of dementia, presented after a fall, possible syncopal episode. Events are unclear as to what led to the fall Possible syncopal episode with fall A. fib, new onset, slow ventricular response -Continuous cardiac telemetry -Consult cardiology for evaluation -We'll hold Namenda and Aricept. -Continue with IV fluids -2-D echo -Carotid ultrasound Elevated troponin, denies chest pain -Serial cardiac enzymes -Cardiology consultation Dementia -Continue to monitor History of recurrent sarcoma, had recent excision -Stable, continue to monitor Home medications reviewed, initiated as indicated SCDs for DVT prophylaxis Physical therapy for evaluation and treatment Plan of care has been discussed with the patient's family, attending and RN. Further management of the patient will be dependent on the hospital course This patient was seen by myself and Dr. Bennett, this H&P is written his behalf (Lara Hassan) Assessment and Plan pt is seen & examined d/w Lara De Los Santos w above cont current tx will f/u (Alissa Bennett MD) Problem Qualifiers (1) Syncope: Qualified Codes: R55 - Syncope and collapse (2) Fall: Qualified Codes: W19.XXXA - Unspecified fall, initial encounter (3) Skin tear of elbow without complication: Qualified Codes: S51.011A - Laceration without foreign body of right elbow, initial encounter (4) Skin tear of left elbow without complication: Qualified Codes: S51.012A - Laceration without foreign body of left elbow, initial encounter (5) Eyebrow laceration: Qualified Codes: S01.112A - Laceration without foreign body of left eyelid and periocular area, initial encounter (6) Dementia: Qualified Codes: F03.90 - Unspecified dementia without behavioral disturbance (7) Atrial fibrillation: Qualified Codes: I48.91 - Unspecified atrial fibrillation Lara Hassan Jul 16, 2017 10:20 Alissa Bennett MD Jul 16, 2017 11:24
[2017-07-16] MEDS ORDERED: ASPIRIN EC 81 MG TABEC PO ONE (18:15)
--- NOTE | 2017-07-16 20:50 | MB ---
cc: JOEL MONIQUE MD DATE OF CONSULTATION 07/16/17 HISTORY OF PRESENT ILLNESS This is a very pleasant 86-year-old gentleman with history of dementia brought in due to a fall. The patient is a poor historian due to his dementia. He is not aware that he is in the hospital. He is otherwise sitting upright eating dinner in no acute distress. He denies chest pain, fevers, chills, cough. He does not recall any syncope. He did have an abrasion over the left eyebrow. PAST MEDICAL HISTORY Per history of present illness. SOCIAL HISTORY Denies tobacco or alcohol use. ALLERGIES None. MEDICATIONS Prior to admission 1. Namenda. 2. Zoloft. 3. Aricept 4. Proscar 5. Tamsulosin In the hospital. Tamsulosin 0.4 mg daily. PHYSICAL EXAMINATION VITAL SIGNS: Blood pressure 101/52, pulse 63, temperature 98. Pulse is ranging between 45 and 53. GENERAL: He is alert and oriented times one in no acute distress NECK: Supple. No JVD or bruit CARDIOVASCULAR: S1, S2, no murmurs, rubs or gallops. LUNGS: Clear to auscultation bilaterally ABDOMEN: Soft, nontender, nondistended, positive bowel sounds. EXTREMITIES: Lower extremity edema. LABORATORY DATA White count 11.3, hemoglobin 14.2, hematocrit 42.9, platelet count 116. Sodium 144. Potassium 3.8, chloride ___ Bicarb 27.7, BUN 20. Creatinine 0.93. Troponin is 0.1,0.25 and 0.21, INR 1.1. IMAGING STUDIES Chest x-ray - diffuse prominence of the interstitial markings likely representing underlying interstitial disease. Increased density at the left base representing some degree of atelectasis or consolidation, some degree of left effusion cannot be excluded. Possible focal consolidation or mass in the right upper lung. Head CT - No acute abnormality seen, chronic atrophy and a small area of encephalomalacia at the medial left temporal lobe. Cervical spine CT - no acute bony injury is seen, degenerative involving the facet joints at multiple levels. CT chest - Negative for acute traumatic injury pneumothorax, bilateral chronic-appearing pleural thickening and small loculated areas of pleural fluid. Moderate coronary calcification osteopenic. Elbow x-ray - no acute disease. Left posterior elbow - no soft tissue swelling, joint effusion or fracture. Osseous structures are in normal alignment, bony mineralization is normal. Pelvis x-ray - no definite acute abnormality seen. Shoulder x-ray - no acute disease. Wrist x-ray - no acute disease. CARDIOLOGY STUDIES EKG shows A. fib at a rate 50 beats per minute. DIAGNOSES 1. Non STEMI 2. Probable syncope. 3. A. fib which is new onset 4. Bradycardia. 5. Dementia. 6. Lung mass. 7. Elevated white count 8. Coronary artery disease. 9. Hypernatremia DISCUSSION The patient very likely has an ischemic etiology to his elevated troponin. He is completely asymptomatic, however, the coronary disease may also be associated with his new onset A. fib and bradycardia and suspect the syncope is related to his bradycardia. I do think he should add carotid ultrasound, 2-D echo of course. We will need to talk to his surrogate regarding risks and benefits of heart catheterization, particularly in the context of the patient's dementia. We will proceed with the family's wishes. Otherwise, I recommend aspirin 81 mg daily. We will check liver function tests and lipids. Start the patient on statin per NCP guidelines. MD RENATE Maldonado/ /6:06 PM /8:28 PM
--- NOTE | 2017-07-16 21:04 | RADRPT ---
EXAM DATE/TIME: 07/16/2017 19:36 [facility] COMPARISON: No previous studies available for comparison. INDICATIONS : Syncope. MEDICAL HISTORY : Syncope. Bradycardia. Atrial fibrillation. Skin cancer. SURGICAL HISTORY : Colon resection. Skin cancer removed from ankle. ENCOUNTER: Initial ACUITY: 1 day PAIN SCORE: 0/10 LOCATION: Bilateral neck PEAK SYSTOLIC VELOCITIES (cm/sec): ICA/CCA RATIO: Right: 1.2 Left: 0.8 ICA: Right: 102 Left: 91 CCA: Right: 85 Left: 124 ECA: Right: 139 Left: 162 VERTEBRAL: Right: 54 antegrade Left: 61 antegrade Elevated flow velocities and ICA/CCA ratios have been found to correlate with increased degrees of vessel stenosis, calculated as percentage of diameter relative to a normal segment of distal ICA/CCA FINDINGS: RIGHT CAROTID: No significant stenosis is visualized. Mild plaque is present. The waveforms are within normal limits . The distal internal carotid artery cannot be visualized. LEFT CAROTID: No significant stenosis is visualized. Mild plaque is present. The waveforms are within normal limit s. The distal internal carotid artery could not be visualized. VERTEBRAL ARTERIES: Antegrade flow is seen in both vertebral arteries. MISCELLANEOUS: None. CONCLUSION: Mild bilateral plaque. There is no hemodynamically significant stenosis. Pako Hopkins MD on July 16, 2017 at 21:01 Board Certified Radiologist. This report was verified electronically.
[2017-07-17] VITALS: BP 128/59; PULSE 47; RESP 18; TEMP 97.5; O2SAT 93
[2017-07-17 04:00] VITALS: BP 128/59; PULSE 47; RESP 18; TEMP 97.5; O2SAT 97
[2017-07-17] MEDS: SODIUM CHLOR 0.9% 1000 ML INJ 1,000 ML IV SCH ×2 (05:04→19:24)
[2017-07-17 08:03] VITALS: BP 153/67; PULSE 50; RESP 19; TEMP 97; O2SAT 96
[2017-07-17] MEDS: SODIUM CHLORIDE 0.9% FLUSH 10 ML FLUSH IV FLUSH SCH ×2 (08:29→20:10)
[2017-07-17] MEDS: DOCUSATE SODIUM 50 MG/SENNA 8.6 MG TAB PO SCH ×2 (08:29→20:10)
[2017-07-17] MEDS: ASPIRIN EC 81 MG TABEC PO SCH (08:29)
[2017-07-17] MEDS: TAMSULOSIN HCL 0.4 MG CAP PO SCH (08:29)
[2017-07-17 10:07] LABS: HDL CHOLESTEROL 55.1 MG/DL (40.0-60.0); INDIRECT BILIRUBIN 0.6 MG/DL (0.0-0.8); TOTAL BILIRUBIN ADULT 0.8 MG/DL (0.2-1.0)
--- NOTE | 2017-07-17 10:44 | HHI.PR ---
Subjective Subjective Remarks sitting up in chair more confused at night better this morning oriented to self, others didn't sleep much pleasant no pain when asked [facility] endorsed that pt. had been referred to Dr. Almendarez for bradycardia but they did not want to pursue any other workup at this time, they may be agreeable to STT but no cardiac cath and no pacemaker if needed daughter and her siblings are POA and want DNR and hospice evaluation. They want pt to be comfortable and have "quality of life" tele reviewed, afib SVR, pauses 3.4 sec. currently aflutter, HR 50 Review of Systems Constitutional Constitutional Remarks unable to obtain ROS Vitals/Results Vital Signs Vital Signs Date Time Temp Pulse Resp B/P (MAP) Pulse Ox O2 Delivery O2 Flow Rate FiO2 07/17/17 08:03 97.0 50 19 153/67 (95) 96 07/17/17 04:00 97.5 47 18 128/59 (82) 97 07/17/17 00:00 97.5 47 18 128/59 (82) 93 07/16/17 20:00 43 07/16/17 20:00 97.6 47 16 128/58 (81) 92 07/16/17 19:45 60 07/16/17 16:00 97.8 45 18 132/61 (84) 96 07/16/17 12:00 98.0 63 18 101/52 (68) 94 CBC/BMP: 07/16/17 0629 07/16/17 0629 Lab Results Laboratory Tests Test 07/17/17 08:55 Total Bilirubin 0.8 MG/DL Direct Bilirubin 0.2 MG/DL Indirect Bilirubin 0.6 MG/DL Aspartate Amino Transf (AST/SGOT) 45 U/L Alanine Aminotransferase (ALT/SGPT) 43 U/L Alkaline Phosphatase 95 U/L Total Protein 5.9 GM/DL Albumin 3.1 GM/DL Triglycerides Level 54 MG/DL Cholesterol Level 134 MG/DL LDL Cholesterol 68 MG/DL HDL Cholesterol 55.1 MG/DL Cholesterol/HDL Ratio 2.43 RATIO Physical Exam General General Appearance: Well Developed, Well Nourished, No Acute Distress, Comfortable Eyes Eye Exam: Pupils Equal, Pupils Reactive Eye Remarks bruising, skin lac with steristrips Ears & Nose Ears & Nose Exam: Nasal Mucosa Halley Throat Throat Exam: Oral Mucosa Halley & Moist Neck Neck Exam: Neck Supple, Trachea Midline Pulmonary Resp Exam: Clear Bilaterally Cardiology CV Exam: Arrhythmia, Bradycardia Gastrointestinal/Abdomen GI Exam: Soft, Non-Tender, Bowel Sounds Present, Non-Distended Musculoskeletal MS Exam: Joints Intact Integumentary Skin Exam: Warm, Dry Skin Remarks bruising, abrasion Assessment/Plan Problem List: (1) Bradycardia ICD Codes: R00.1 - Bradycardia, unspecified Status: Acute (2) Elevated troponin ICD Codes: R74.8 - Abnormal levels of other serum enzymes Status: Acute (3) Syncope ICD Codes: R55 - Syncope and collapse Status: Acute (4) Fall ICD Codes: W19.XXXA - Unspecified fall, initial encounter Status: Acute (5) Head injury, acute ICD Codes: S09.90XA - Unspecified injury of head, initial encounter Status: Acute (6) Skin tear of elbow without complication ICD Codes: S51.019A - Laceration without foreign body of unspecified elbow, initial encounter Status: Acute (7) Skin tear of left elbow without complication ICD Codes: S51.012A - Laceration without foreign body of left elbow, initial encounter Status: Acute (8) Mass of right lung ICD Codes: R91.8 - Other nonspecific abnormal finding of lung field Status: Acute (9) dementia Status: Chronic (10) Atrial fibrillation ICD Codes: I48.91 - Unspecified atrial fibrillation Status: Acute Assessment/Plan 86-year-old elderly male history of dementia, presented after a fall, possible syncopal episode. Events are unclear as to what led to the fall Possible syncopal episode with fall A. fib, new onset, slow ventricular response -Continuous cardiac telemetry -continue to hold Namenda and Aricept. -Continue with IV fluids-dec. to 50/hr -2-D echo pending -continue ASA, not a candidate for anticoagulation due to falls, risk of injury. -Carotid ultrasound-no stenosis -tele reviewed, afib with SVR, pauses -card recommends further work up for ischemic heart disease. d/w family at length, they want non invasive measure, no cath, no pacemaker, maybe STT pt. had been referred to Dr. Almendarez for "low heart rate" as his PCP thought he may need PPM, however family held off on seeing card. Elevated troponin, denies chest pain NSTEMI -Serial cardiac enzymes done -ASA -Lipid profile done -Appreciate card input. Dementia -Continue to monitor History of recurrent sarcoma, had recent excision -Stable, continue to monitor SCDs for DVT prophylaxis PT eval OOB to chair with assistance D/W family at length, they want conservative measures. Not interested in pursuing ischemic eval, Pacemaker. They want DNR status Agreeable with hospice consult, they want to maintain him as independent as possible and having "quality of life" D/W RN D/W pt and family at length D/W Dr. Bennett This patient was seen by myself and Dr. Bennett, this note is written his behalf Problem Qualifiers (1) Syncope: Qualified Codes: R55 - Syncope and collapse (2) Fall: Qualified Codes: W19.XXXA - Unspecified fall, initial encounter (3) Head injury, acute: Qualified Codes: S09.90XA - Unspecified injury of head, initial encounter (4) Skin tear of elbow without complication: Qualified Codes: S51.011A - Laceration without foreign body of right elbow, initial encounter (5) Skin tear of left elbow without complication: Qualified Codes: S51.012A - Laceration without foreign body of left elbow, initial encounter (6) Atrial fibrillation: Qualified Codes: I48.91 - Unspecified atrial fibrillation Lara Hassan Jul 17, 2017 10:44
[2017-07-17 12:04] VITALS: BP 152/66; PULSE 52; RESP 18; TEMP 97.2; O2SAT 97
--- NOTE | 2017-07-17 12:29 | PD.CARD.PN ---
Subjective Subjective Remarks alert in nad Objective Vital Signs / I&O Vital Signs Date Time Temp Pulse Resp B/P (MAP) Pulse Ox O2 Delivery O2 Flow Rate FiO2 07/17/17 08:03 97.0 50 19 153/67 (95) 96 07/17/17 04:00 97.5 47 18 128/59 (82) 97 07/17/17 00:00 97.5 47 18 128/59 (82) 93 07/16/17 20:00 43 07/16/17 20:00 97.6 47 16 128/58 (81) 92 07/16/17 19:45 60 07/16/17 16:00 97.8 45 18 132/61 (84) 96 I/O 07/16/17 07/16/17 07/16/17 07/17/17 07/17/17 07/17/17 06:59 14:59 22:59 06:59 14:59 22:59 Intake Total 740 ml 960 ml 150 ml Output Total 600 ml Balance 740 ml 360 ml 150 ml Intake Oral 240 ml 960 ml 150 ml IV Total 500 ml Output Urine Total 600 ml Stool Total 0 ml # Voids 0 # Bowel Movements 0 4 Physical Exam GENERAL: SKIN: Warm and dry. HEAD: Normocephalic. EYES: No scleral icterus. No injection or drainage. NECK: Supple, trachea midline. No JVD or lymphadenopathy. CARDIOVASCULAR: Regular rate and rhythm without murmurs, gallops, or rubs. RESPIRATORY: Breath sounds equal bilaterally. No accessory muscle use. GASTROINTESTINAL: Abdomen soft, non-tender, nondistended. MUSCULOSKELETAL: No cyanosis, or edema. BACK: Nontender without obvious deformity. No CVA tenderness. Laboratory GENERAL: SKIN: Warm and dry. HEAD: Normocephalic. EYES: No scleral icterus. No injection or drainage. NECK: Supple, trachea midline. No JVD or lymphadenopathy. CARDIOVASCULAR: Regular rate and rhythm without murmurs, gallops, or rubs. RESPIRATORY: Breath sounds equal bilaterally. No accessory muscle use. GASTROINTESTINAL: Abdomen soft, non-tender, nondistended. MUSCULOSKELETAL: No cyanosis, or edema. BACK: Nontender without obvious deformity. No CVA tenderness. Laboratory Tests Test 07/17/17 08:55 Total Bilirubin 0.8 MG/DL Direct Bilirubin 0.2 MG/DL Indirect Bilirubin 0.6 MG/DL Aspartate Amino Transf (AST/SGOT) 45 U/L Alanine Aminotransferase (ALT/SGPT) 43 U/L Alkaline Phosphatase 95 U/L Total Protein 5.9 GM/DL Albumin 3.1 GM/DL Triglycerides Level 54 MG/DL Cholesterol Level 134 MG/DL LDL Cholesterol 68 MG/DL HDL Cholesterol 55.1 MG/DL Cholesterol/HDL Ratio 2.43 RATIO Assessment and Plan Problem List: (1) Bradycardia ICD Codes: R00.1 - Bradycardia, unspecified (2) Elevated troponin ICD Codes: R74.8 - Abnormal levels of other serum enzymes Status: Acute (3) Syncope ICD Codes: R55 - Syncope and collapse Status: Acute (4) Fall ICD Codes: W19.XXXA - Unspecified fall, initial encounter Status: Acute (5) Head injury, acute ICD Codes: S09.90XA - Unspecified injury of head, initial encounter Status: Acute (6) Skin tear of elbow without complication ICD Codes: S51.019A - Laceration without foreign body of unspecified elbow, initial encounter Status: Acute (7) Skin tear of left elbow without complication ICD Codes: S51.012A - Laceration without foreign body of left elbow, initial encounter Status: Acute (8) Mass of right lung ICD Codes: R91.8 - Other nonspecific abnormal finding of lung field Status: Acute (9) Eyebrow laceration ICD Codes: S01.119A - Laceration without foreign body of unspecified eyelid and periocular area, initial encounter Status: Acute (10) Dementia ICD Codes: F03.90 - Unspecified dementia without behavioral disturbance Status: Chronic (11) Atrial fibrillation ICD Codes: I48.91 - Unspecified atrial fibrillation Status: Acute (12) dementia Status: Chronic Assessment and Plan 1.) NSTEMI - assymptomatic, continue aspirin 81 mg qd, ldl=68, lfts elevated, will d/w surrogate risks and benefits of [facility] 2.) Bradycardia - may need ppm, continue tele, consult DR Isidro 3.) Afib - rate controlled, continue aspirin, not good candidate for senior care anticoagulation with coumadin or noac due to fall risk and dementia Problem Qualifiers (1) Syncope: Qualified Codes: R55 - Syncope and collapse (2) Fall: Qualified Codes: W19.XXXA - Unspecified fall, initial encounter (3) Head injury, acute: Qualified Codes: S09.90XA - Unspecified injury of head, initial encounter (4) Skin tear of elbow without complication: Qualified Codes: S51.011A - Laceration without foreign body of right elbow, initial encounter (5) Skin tear of left elbow without complication: Qualified Codes: S51.012A - Laceration without foreign body of left elbow, initial encounter (6) Eyebrow laceration: Qualified Codes: S01.112A - Laceration without foreign body of left eyelid and periocular area, initial encounter (7) Dementia: Qualified Codes: F03.90 - Unspecified dementia without behavioral disturbance (8) Atrial fibrillation: Qualified Codes: I48.91 - Unspecified atrial fibrillation Jaden Velázquez MD Jul 17, 2017 12:29
[2017-07-17 16:03] VITALS: BP 150/64; PULSE 54; RESP 18; TEMP 97.2; O2SAT 97
--- NOTE | 2017-07-17 17:12 | MB ---
cc: SHAUN BAUGH M.D. DATE OF CONSULTATION: 07/17/2017. REASON FOR CONSULTATION: Electrophysiology consult for syncope and severe bradycardia, multiple pauses. HISTORY OF PRESENT ILLNESS: Mr. Lynn is an 86-year-old gentleman living in an assisted living facility with history of dementia, previous bradycardia, not on any negative chronotropic medications admitted due to syncopal episodes and fall. He was evaluated by cardiology. During the hospitalization, he developed multiple pauses, some of them greater than 3 seconds. I was consulted for evaluation and management. The chart was reviewed. The patient was evaluated. ALLERGIES: NONE. SOCIAL HISTORY: Negative for smoking and drinking. FAMILY HISTORY: Noncontributory to his current medical condition. MEDICATIONS: At the assisted living facility, the gentleman was on: 1. Namenda. 2. Zoloft. 3. Aricept. 4. Proscar. REVIEW OF SYSTEMS: Currently the patient refers no chest pain and no chest discomfort. He refers feeling better. No fever. PHYSICAL EXAMINATION: GENERAL: Alert. The patient is oriented in person and space. VITAL SIGNS: Blood pressure 152/66, pulse 52, respiratory rate 18. LUNGS: Ventilated. CARDIOVASCULAR: S1-S2 irregular. No gallop. ABDOMEN: Abdomen soft, no mass. No bruits. EXTREMITIES: No edema. EKGS: Electrocardiogram shows atrial fibrillation, diffuse S-T changes. LABS: Hemoglobin 14.2, white blood cell count 6.7. Potassium 3.7, creatinine 0.90. Troponin 0.21. ASSESSMENT: Mr. Lynn has severe bradycardia. He has multiple pauses. He has syncope. He will need pacing support, that is, a permanent pacemaker. Apparently the family is aware of the condition. I did talk to the nurse. Apparently the family does not want any intervention. They are even considering the option of hospice. In this case, I am going to see him on a PRN basis. Continue with current management. If the family agrees for pacing support, then I will re-evaluate the gentleman again. MD CHUYITA Kaye/CHANTAL /3:45 PM /5:01 PM
--- NOTE | 2017-07-17 18:56 | ECHRPT ---
Indication: CHEST PAIN CONCLUSIONS Normal left ventricular size. Wall thickness is normal. The left ventricular systolic function is normal with an estimated ejection fraction in the range of 55-60%. No regional wall motion abnormalities are present. This study was not technically sufficient to allow for evaluation of left ventricular diastolic func tion. The right ventricle was not well visualized. The left atrial size is moderately dilated. The right atrial size is mildly dilated. The interatrial septum not well visualized. [id number] mitral valve regurgitation. Moderate mitral annular calcification. No mitral valve stenosis. Aortic valve sclerosis is present. Mild aortic valve regurgitation. There is mild to moderate tricuspid valve regurgitation. There is estimated mild pulmonary hypertension present (range 40-50 mmHg). The pulmonary valve is not well visualized. The inferior vena cava was not well visualized. BP: 128 / 59 HR: 47 Rhythm: Atrial fibrillation, Atrial flut ter MEASUREMENTS (Male / Female) Normal Values Technical Quality:Fair 2D ECHO LV Diastolic Diameter PLAX 5.4 cm 4.2 - 5.9 / 3.9 - 5.3 cm LV Systolic Diameter PLAX 4.0 cm IVS Diastolic Thickness 0.9 cm 0.6 - 1.0 / 0.6 - 0.9 cm LVPW Diastolic Thickness 0.9 cm 0.6 - 1.0 / 0.6 - 0.9 cm LV Relative Wall Thickness 0.3 LVOT Diameter 2.1 cm Aortic Root Diameter 3.5 cm LA Systolic Diameter LX 4.2 cm 3.0 - 4.0 / 2.7 - 3.8 cm M-MODE AV Cusp Separation MM 2.1 cm DOPPLER AV Peak Velocity 161.0 cm/s AV Peak Gradient 10.4 mmHg AV Mean Gradient 6.3 mmHg AV Velocity Time Integral 33.6 cm AI Peak Velocity 330.8 cm/s AI Peak Gradient 43.8 mmHg AI Pressure Half Time 845.0 ms LVOT Peak Velocity 98.3 cm/s LVOT Peak Gradient 3.9 mmHg LVOT Velocity Time Integral 18.6 cm LVOT Cardiac Index 1642.3 cm/minm AV Area Cont Eq vti 1.9 cm AV Area Cont Eq pk 2.1 cm Mitral E Point Velocity 133.0 cm/s LV E' Lateral Velocity 9.9 cm/s Mitral E to LV E' Lateral Ratio 13.4 LV E' Septal Velocity 9.3 cm/s Mitral E to LV E' Septal Ratio 14.4 TR Peak Velocity 297.0 cm/s TR Peak Gradient 35.3 mmHg PV Peak Velocity 72.9 cm/s PV Peak Gradient 2.1 mmHg FINDINGS LEFT VENTRICLE Normal left ventricular size. Wall thickness is normal. The left ventricular systolic function is normal with an estimated ejection fraction in the range of 55-60%. No regional wall motion abnormalities are present. This study was not technically sufficient to allow for evaluation of left ventricular diastolic func tion. RIGHT VENTRICLE The right ventricle was not well visualized. LEFT ATRIUM The left atrial size is moderately dilated. RIGHT ATRIUM The right atrial size is mildly dilated. ATRIAL SEPTUM The interatrial septum not well visualized. AORTA The aortic root and proximal ascending aorta are normal in size on limited imaging. MITRAL VALVE Structurally normal mitral valve. [id number] mitral valve regurgitation. Moderate mitral annular calcification. No mitral valve stenosis. AORTIC VALVE Trileaflet aortic valve. Aortic valve sclerosis is present. Mild aortic valve regurgitation. TRICUSPID VALVE Structurally normal tricuspid valve. There is mild to moderate tricuspid valve regurgitation. There is estimated mild pulmonary hypertension present (range 40-50 mmHg). PULMONARY VALVE The pulmonary valve is not well visualized. VESSELS The inferior vena cava was not well visualized. PERICARDIUM No pericardial effusion. Shanita Isidro MD (Electronically Signed) Final Date:17 July 2017 18:55
[2017-07-17 20:00] VITALS: PULSE 41
[2017-07-18] VITALS (9 sets, daily range): BP systolic 132–161; BP diastolic 67–84; PULSE 36–54; RESP 18–20; TEMP 97.1–98; O2SAT 54–96
[2017-07-18] MEDS: TAMSULOSIN HCL 0.4 MG CAP PO SCH (08:50)
[2017-07-18] MEDS: ASPIRIN EC 81 MG TABEC PO SCH (08:50)
[2017-07-18] MEDS: DOCUSATE SODIUM 50 MG/SENNA 8.6 MG TAB PO SCH ×2 (08:50→21:00)
[2017-07-18] MEDS: SODIUM CHLORIDE 0.9% FLUSH 10 ML FLUSH IV FLUSH SCH ×2 (08:50→21:00)
--- NOTE | 2017-07-18 09:09 | HHI.PR ---
Subjective Subjective Remarks Patient is awake, alert, oriented to self and place Wants to get out of bed Wants to go back to assisted living facility, indicates that this is not "his style" denies any dizziness when asked difficult to obtain ROS tele reviewed, continues to have pauses 3 seconds Review of Systems Constitutional Constitutional Remarks unable to obtain ROS Vitals/Results Vital Signs Vital Signs Date Time Temp Pulse Resp B/P (MAP) Pulse Ox O2 Delivery O2 Flow Rate FiO2 07/18/17 08:00 97.1 44 18 158/75 (102) 96 07/18/17 04:00 Room Air 07/18/17 04:00 97.3 44 20 142/77 (98) 93 07/18/17 00:00 97.7 43 18 136/84 (101) 95 07/18/17 00:00 Room Air 07/17/17 20:00 Room Air 07/17/17 20:00 41 07/17/17 16:03 97.2 54 18 150/64 (92) 97 07/17/17 12:04 97.2 52 18 152/66 (94) 97 CBC/BMP: 07/16/17 0629 07/16/17 0629 Lab Results Laboratory Tests Test 07/17/17 08:55 Total Bilirubin 0.8 MG/DL Direct Bilirubin 0.2 MG/DL Indirect Bilirubin 0.6 MG/DL Aspartate Amino Transf (AST/SGOT) 45 U/L Alanine Aminotransferase (ALT/SGPT) 43 U/L Alkaline Phosphatase 95 U/L Total Protein 5.9 GM/DL Albumin 3.1 GM/DL Triglycerides Level 54 MG/DL Cholesterol Level 134 MG/DL LDL Cholesterol 68 MG/DL HDL Cholesterol 55.1 MG/DL Cholesterol/HDL Ratio 2.43 RATIO Physical Exam General General Appearance: Well Developed, Well Nourished, No Acute Distress, Comfortable Eyes Eye Exam: Pupils Equal, Pupils Reactive Eye Remarks bruising, skin lac with steristrips Ears & Nose Ears & Nose Exam: Nasal Mucosa [place] Throat Throat Exam: Oral Mucosa [place] & Moist Neck Neck Exam: Neck Supple, Trachea Midline Pulmonary Resp Exam: Clear Bilaterally Cardiology CV Exam: Arrhythmia, Bradycardia Gastrointestinal/Abdomen GI Exam: Soft, Non-Tender, Bowel Sounds Present, Non-Distended Musculoskeletal MS Exam: Joints Intact Integumentary Skin Exam: Warm, Dry Skin Remarks bruising, abrasion Assessment/Plan Problem List: (1) Bradycardia ICD Codes: R00.1 - Bradycardia, unspecified Status: Acute (2) Elevated troponin ICD Codes: R74.8 - Abnormal levels of other serum enzymes Status: Acute (3) Syncope ICD Codes: R55 - Syncope and collapse Status: Acute (4) Fall ICD Codes: W19.XXXA - Unspecified fall, initial encounter Status: Acute (5) Head injury, acute ICD Codes: S09.90XA - Unspecified injury of head, initial encounter Status: Acute (6) Skin tear of elbow without complication ICD Codes: S51.019A - Laceration without foreign body of unspecified elbow, initial encounter Status: Acute (7) Skin tear of left elbow without complication ICD Codes: S51.012A - Laceration without foreign body of left elbow, initial encounter Status: Acute (8) Mass of right lung ICD Codes: R91.8 - Other nonspecific abnormal finding of lung field Status: Acute (9) dementia Status: Chronic (10) Atrial fibrillation ICD Codes: I48.91 - Unspecified atrial fibrillation Status: Acute Assessment/Plan 86-year-old elderly male history of dementia, presented after a fall, possible syncopal episode. Events are unclear as to what led to the fall Possible syncopal episode with fall A. fib, new onset, slow ventricular response -Continuous cardiac telemetry -continue to hold Namenda and Aricept. -Continue with IV fluids-50/hr -2-D echo ok EF 55-60% -continue ASA, not a candidate for anticoagulation due to falls, risk of injury. -Carotid ultrasound-no stenosis -tele reviewed, afib with SVR, pauses -card recommends further work up for ischemic heart disease.d/w family at length , they want non invasive measure, no cath, no pacemaker, maybe STT pt. had been referred to Dr. Almendarez for "low heart rate" as his PCP thought he may need PPM, however family held off on seeing card. -Dr. Velázquez consulted Dr. Isidro for possible pacemaker. Dr. Isidro evaluated last night. -d/w daughter Yuliya at length, they want pt. to go through rehab first. Explained that pt. will not be able to tolerate rehab and current clinical condition as he is at risk for further syncopal episodes and injuries. They are also not ready to move forward with hospice yet. After much discussion, they would like to speak to Dr. Isidro Spoke to Dr. Isidro, he will speak to them today Elevated troponin, denies chest pain NSTEMI -Serial cardiac enzymes done -continue with ASA -Lipid profile done -Appreciate card input. Dementia -Continue to monitor History of recurrent sarcoma, had recent excision -Stable, continue to monitor SCDs for DVT prophylaxis PT eval OOB to chair with assistance DNR status Discussed with patient's daughter at length, she wants to talk to Dr. Isidro about pacemaker. Her major concern was the effects of anesthesia and whether this will create more agitation. I answered questions in detail. Spoke to Dr. Isidro, he will come and speak to the family today. D/W RN D/W pt and daughter D/W Dr. Carranza This patient was seen by myself and Dr. Carranza, this note is written his behalf Problem Qualifiers (1) Syncope: Qualified Codes: R55 - Syncope and collapse (2) Fall: Qualified Codes: W19.XXXA - Unspecified fall, initial encounter (3) Head injury, acute: Qualified Codes: S09.90XA - Unspecified injury of head, initial encounter (4) Skin tear of elbow without complication: Qualified Codes: S51.011A - Laceration without foreign body of right elbow, initial encounter (5) Skin tear of left elbow without complication: Qualified Codes: S51.012A - Laceration without foreign body of left elbow, initial encounter (6) Atrial fibrillation: Qualified Codes: I48.91 - Unspecified atrial fibrillation Lara Hassan Jul 18, 2017 09:09
[2017-07-18] MEDS: POLYMYXIN/TRIMETHOPRIM OPHT SOLN 10 ML BTL EACH EYE SCH ×2 (12:00→18:51)
--- NOTE | 2017-07-18 14:31 | PD.CARD.PN ---
Subjective Subjective Remarks alert in nad Objective Vital Signs / I&O GENERAL: SKIN: Warm and dry. HEAD: Normocephalic. EYES: No scleral icterus. No injection or drainage. NECK: Supple, trachea midline. No JVD or lymphadenopathy. CARDIOVASCULAR: Regular rate and rhythm without murmurs, gallops, or rubs. RESPIRATORY: Breath sounds equal bilaterally. No accessory muscle use. GASTROINTESTINAL: Abdomen soft, non-tender, nondistended. MUSCULOSKELETAL: No cyanosis, or edema. BACK: Nontender without obvious deformity. No CVA tenderness. Vital Signs Date Time Temp Pulse Resp B/P (MAP) Pulse Ox O2 Delivery O2 Flow Rate FiO2 07/18/17 12:00 98.0 48 20 132/67 (88) 93 07/18/17 08:00 97.1 44 18 158/75 (102) 96 07/18/17 04:00 Room Air 07/18/17 04:00 97.3 44 20 142/77 (98) 93 07/18/17 00:00 97.7 43 18 136/84 (101) 95 07/18/17 00:00 Room Air 07/17/17 20:00 Room Air 07/17/17 20:00 41 07/17/17 16:03 97.2 54 18 150/64 (92) 97 I/O 07/17/17 07/17/17 07/17/17 07/18/17 07/18/17 07/18/17 07:00 15:00 23:00 07:00 15:00 23:00 Intake Total 150 ml 420 ml 360 ml Output Total 200 ml Balance 150 ml 420 ml 160 ml Intake Oral 150 ml 420 ml 360 ml Output Urine Total 200 ml # Voids 3 2 # Bowel Movements 4 1 0 Physical Exam GENERAL: SKIN: Warm and dry. HEAD: Normocephalic. EYES: No scleral icterus. No injection or drainage. NECK: Supple, trachea midline. No JVD or lymphadenopathy. CARDIOVASCULAR: Regular rate and rhythm without murmurs, gallops, or rubs. RESPIRATORY: Breath sounds equal bilaterally. No accessory muscle use. GASTROINTESTINAL: Abdomen soft, non-tender, nondistended. MUSCULOSKELETAL: No cyanosis, or edema. BACK: Nontender without obvious deformity. No CVA tenderness. Assessment and Plan Problem List: (1) Bradycardia ICD Codes: R00.1 - Bradycardia, unspecified Status: Acute (2) Elevated troponin ICD Codes: R74.8 - Abnormal levels of other serum enzymes Status: Acute (3) Syncope ICD Codes: R55 - Syncope and collapse Status: Acute (4) Fall ICD Codes: W19.XXXA - Unspecified fall, initial encounter Status: Acute (5) Head injury, acute ICD Codes: S09.90XA - Unspecified injury of head, initial encounter Status: Acute (6) Skin tear of elbow without complication ICD Codes: S51.019A - Laceration without foreign body of unspecified elbow, initial encounter Status: Acute (7) Skin tear of left elbow without complication ICD Codes: S51.012A - Laceration without foreign body of left elbow, initial encounter Status: Acute (8) Mass of right lung ICD Codes: R91.8 - Other nonspecific abnormal finding of lung field Status: Acute (9) Eyebrow laceration ICD Codes: S01.119A - Laceration without foreign body of unspecified eyelid and periocular area, initial encounter Status: Acute (10) Dementia ICD Codes: F03.90 - Unspecified dementia without behavioral disturbance Status: Chronic (11) Atrial fibrillation ICD Codes: I48.91 - Unspecified atrial fibrillation Status: Acute (12) dementia Status: Chronic Assessment and Plan 1.) NSTEMI - assymptomatic, continue aspirin 81 mg qd, ldl=68, lfts elevated, will d/w surrogate risks and benefits of [facility]; d/w sonLawrence, rec [facility], he is undecided, will d/w his family and notify me 2.) Bradycardia - may need ppm, continue tele, consult DR Isidro 3.) Afib - rate controlled, continue aspirin, 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 with coumadin or noac due to fall risk and dementia Problem Qualifiers (1) Syncope: Qualified Codes: R55 - Syncope and collapse (2) Fall: Qualified Codes: W19.XXXA - Unspecified fall, initial encounter (3) Head injury, acute: Qualified Codes: S09.90XA - Unspecified injury of head, initial encounter (4) Skin tear of elbow without complication: Qualified Codes: S51.011A - Laceration without foreign body of right elbow, initial encounter (5) Skin tear of left elbow without complication: Qualified Codes: S51.012A - Laceration without foreign body of left elbow, initial encounter (6) Eyebrow laceration: Qualified Codes: S01.112A - Laceration without foreign body of left eyelid and periocular area, initial encounter (7) Dementia: Qualified Codes: F03.90 - Unspecified dementia without behavioral disturbance (8) Atrial fibrillation: Qualified Codes: I48.91 - Unspecified atrial fibrillation Jaden Velázquez MD Jul 18, 2017 14:31
--- NOTE | 2017-07-18 16:14 | HHI.PR ---
Subjective Remarks Doing ok Objective Vital Signs Date Time Temp Pulse Resp B/P (MAP) Pulse Ox O2 Delivery O2 Flow Rate FiO2 07/18/17 14:44 94 07/18/17 12:00 98.0 48 20 132/67 (88) 93 07/18/17 08:00 97.1 44 18 158/75 (102) 96 07/18/17 04:00 Room Air 07/18/17 04:00 97.3 44 20 142/77 (98) 93 07/18/17 00:00 97.7 43 18 136/84 (101) 95 07/18/17 00:00 Room Air 07/17/17 20:00 Room Air 07/17/17 20:00 41 I/O 07/17/17 07/17/17 07/17/17 07/18/17 07/18/17 07/18/17 07:00 15:00 23:00 07:00 15:00 23:00 Intake Total 150 ml 420 ml 360 ml Output Total 200 ml Balance 150 ml 420 ml 160 ml Intake Oral 150 ml 420 ml 360 ml Output Urine Total 200 ml # Voids 3 2 # Bowel Movements 4 1 0 Result Diagram: 07/16/1729 07/16/17628 Imaging Alert, fully oriented Lungs: ventilated Heart: S1, S2 irregular, no gallop Abdomen: soft, no mass Ext: no edema Last Impressions Carotid Artery Ultrasound 07/16/17 0000 Signed Impressions: Service Date/Time: Sunday, July 16, 2017 19:36 - CONCLUSION: Mild bilateral plaque. There is no hemodynamically significant stenosis. Pako oHpkins MD Head CT 07/15/171858 Signed Impressions: Service Date/Time: Saturday, July 15, 2017 19:34 - CONCLUSION: 1. No acute abnormalities seen. 2. Chronic atrophy and a small area of encephalomalacia at the medial left temporal lobe. Lawrence Bruno MD Chest X-Ray 07/15/171858 Signed Impressions: Service Date/Time: Saturday, July 15, 2017 19:14 - CONCLUSION: 1. Diffuse prominence of the interstitial markings likely representing underlying interstitial disease or edema. 2. Increased density at the left base representing some degree of atelectasis or consolidation. Some degree of left effusion cannot be excluded. 3. Possible focal consolidation or mass in the right upper lung. This should be followed with future chest x-rays and further evaluated with a CT examination if it persists. Lawrence Bruno MD Wrist X-Ray 07/15/17 0000 Signed Impressions: Service Date/Time: Saturday, July 15, 2017 19:16 - CONCLUSION: No acute disease. Lawrence Bruno MD Shoulder X-Ray 07/15/17 0000 Signed Impressions: Service Date/Time: Saturday, July 15, 2017 19:25 - CONCLUSION: No acute disease. Lawrence Bruno MD Pelvis X-Ray 07/15/17 Signed Impressions: Service Date/Time: Saturday, July 15, 2017 19:30 - CONCLUSION: No definite acute abnormality seen. Lawrence Bruno MD Elbow X-Ray 07/15/17 0000 Signed Impressions: Service Date/Time: Saturday, July 15, 2017 19:18 - CONCLUSION: Unremarkable examination of the left elbow. Lawrence Bruno MD Chest CT 07/15/17 0000 Signed Impressions: Service Date/Time: Saturday, July 15, 2017 22:24 - CONCLUSION: 1. Negative for acute traumatic injury in the thorax. 2. Bilateral chronic appearing pleural thickening and small loculated areas of pleural fluid. 3. Moderate coronary calcifications. Bones are osteopenic. Mynor Porras MD Cervical Spine CT 07/15/17 Signed Impressions: Service Date/Time: Saturday, July 15, 2017 19:34 - CONCLUSION: 1. No acute bony injury is seen. 2. Degenerative change involving the facet joints at multiple levels. Lawrence Bruno MD Current Medications Medications (Trade) Dose Ordered Sig/Mason Route Start Time Stop Time Status Last Admin (Flomax) 0.4 mg DAILY PO 07/16/17 09:00 07/18/17 08:50 (Aricept) 10 mg DAILY PO 07/16/17 09:00 Future Hold Sodium Chloride 1,000 ml @ 50 mls/hr Q20H IV 07/15/17 23:40 07/17/17 05:04 (NS Flush) 2 ml UNSCH PRN IV FLUSH 07/15/17 23:45 (NS Flush) 2 ml BID IV FLUSH 07/16/17 09:00 07/18/17 08:50 (Zofran Inj) 4 mg Q6H PRN IVP 07/15/17 23:45 (Narcan Inj) 0.4 mg UNSCH PRN IV 07/15/17 23:45 (Brigitte-Colace) 1 tab BID PO 07/16/17 09:00 07/18/17 08:50 (Milk Of Magnesia Liq) 30 ml Q12H PRN PO 07/15/17 23:45 (Senokot) 17.2 mg Q12H PRN PO 07/15/17 23:45 (Dulcolax Supp) 10 mg DAILY PRN RECTAL 07/15/17 23:45 (Lactulose Liq) 30 ml DAILY PRN PO 07/15/17 23:45 (Ecotrin Ec) 81 mg DAILY PO 07/17/17 09:00 07/18/17 08:50 (Polytrim Opht Soln) 1 drop Q6HR EACH EYE 07/18/17 12:00 07/18/17 12:00 Assessment and Plan Problem List: (1) Syncope ICD Codes: R55 - Syncope and collapse Status: Acute Plan: In bed. No new episode reported (2) Bradycardia ICD Codes: R00.1 - Bradycardia, unspecified Status: Acute Plan: Multiple pauses observed. On no negative chronotropic medications family agree for pacer Will benefit of wireless device to decrease the risk for infection They understand the risks, the nature and benefit of the procedure (3) Atrial fibrillation ICD Codes: I48.91 - Unspecified atrial fibrillation Status: Acute Plan: In afib. HR control Problem Qualifiers (1) Syncope: Qualified Codes: R55 - Syncope and collapse (2) Atrial fibrillation: Qualified Codes: I48.91 - Unspecified atrial fibrillation Shanita Isidro MD Jul 18, 2017 16:14
[2017-07-19] VITALS (7 sets, daily range): BP systolic 148–185; BP diastolic 72–88; PULSE 34–52; RESP 16–20; TEMP 97.2–98.2; O2SAT 94–97
[2017-07-19] MEDS: POLYMYXIN/TRIMETHOPRIM OPHT SOLN 10 ML BTL EACH EYE SCH ×4 (06:00→23:06)
[2017-07-19] MEDS: DOCUSATE SODIUM 50 MG/SENNA 8.6 MG TAB PO SCH ×2 (08:19→20:50)
[2017-07-19] MEDS: ASPIRIN EC 81 MG TABEC PO SCH (08:20)
[2017-07-19] MEDS: SODIUM CHLORIDE 0.9% FLUSH 10 ML FLUSH IV FLUSH SCH ×2 (08:20→20:50)
[2017-07-19] MEDS: TAMSULOSIN HCL 0.4 MG CAP PO SCH (08:20)
--- NOTE | 2017-07-19 09:03 | HHI.PR ---
Subjective Subjective Remarks Eyes open, responds to verbal stimuli States he just doesn't feel right Afebrile Color pale Multiple abrasions noted bilateral knees, left forehead (Maryann Ramirez) Review of Systems Constitutional Constitutional: Weakness Constitutional Remarks Simple ROS assessment (Maryann Ramirez) Psychiatric Psychiatric: Normal Mood, Anxiety (mild) (Maryann Ramirez) Vitals/Results Vital Signs Vital Signs Date Time Temp Pulse Resp B/P (MAP) Pulse Ox O2 Delivery O2 Flow Rate FiO2 07/19/17 08:00 97.9 40 20 161/72 (101) 95 07/19/17 04:00 98.2 34 18 148/88 (108) 97 07/19/17 00:00 98.2 48 18 173/74 (107) 94 07/18/17 20:59 Room Air 07/18/17 20:07 48 07/18/17 20:00 97.5 50 18 161/72 (101) 94 07/18/17 16:00 98.0 54 18 161/71 (101) 54 07/18/17 14:44 94 07/18/17 12:00 98.0 48 20 132/67 (88) 93 (Maryann Ramirez) CBC/BMP: 07/16/17 0629 07/16/17 0629 Imaging Remarks Last Impressions Carotid Artery Ultrasound 07/16/17 0000 Signed Impressions: Service Date/Time: Sunday, July 16, 2017 19:36 - CONCLUSION: Mild bilateral plaque. There is no hemodynamically significant stenosis. Pako Hopkins MD Head CT 07/15/171858 Signed Impressions: Service Date/Time: Saturday, July 15, 2017 19:34 - CONCLUSION: 1. No acute abnormalities seen. 2. Chronic atrophy and a small area of encephalomalacia at the medial left temporal lobe. Lawrence Bruno MD Chest X-Ray 07/15/171858 Signed Impressions: Service Date/Time: Saturday, July 15, 2017 19:14 - CONCLUSION: 1. Diffuse prominence of the interstitial markings likely representing underlying interstitial disease or edema. 2. Increased density at the left base representing some degree of atelectasis or consolidation. Some degree of left effusion cannot be excluded. 3. Possible focal consolidation or mass in the right upper lung. This should be followed with future chest x-rays and further evaluated with a CT examination if it persists. Lawrence Bruno MD Wrist X-Ray 07/15/17 0000 Signed Impressions: Service Date/Time: Saturday, July 15, 2017 19:16 - CONCLUSION: No acute disease. Lawrence Bruno MD Shoulder X-Ray 07/15/17 0000 Signed Impressions: Service Date/Time: Saturday, July 15, 2017 19:25 - CONCLUSION: No acute disease. Lawrence Bruno MD Pelvis X-Ray 07/15/17 Signed Impressions: Service Date/Time: Saturday, July 15, 2017 19:30 - CONCLUSION: No definite acute abnormality seen. Lawrence Bruno MD Elbow X-Ray 07/15/17 Signed Impressions: Service Date/Time: Saturday, July 15, 2017 19:18 - CONCLUSION: Unremarkable examination of the left elbow. Lawrence Bruno MD Chest CT 07/15/17 Signed Impressions: Service Date/Time: Saturday, July 15, 2017 22:24 - CONCLUSION: 1. Negative for acute traumatic injury in the thorax. 2. Bilateral chronic appearing pleural thickening and small loculated areas of pleural fluid. 3. Moderate coronary calcifications. Bones are osteopenic. Mynor Porras MD Cervical Spine CT 07/15/17 0000 Signed Impressions: Service Date/Time: Saturday, July 15, 2017 19:34 - CONCLUSION: 1. No acute bony injury is seen. 2. Degenerative change involving the facet joints at multiple levels. Lawrence Bruno MD Current Medications Administered Medications Medications (Trade) Dose Ordered Sig/Mason Route PRN Reason Start Time Stop Time Status Last Admin Dose Admin Tamsulosin HCl (Flomax) 0.4 mg DAILY PO 07/16/17 09:00 07/19/17 08:20 Sodium Chloride 1,000 ml @ 50 mls/hr Q20H IV 07/15/17 23:40 07/17/17 05:04 Sodium Chloride (NS Flush) 2 ml BID IV FLUSH 07/16/17 09:00 07/19/17 08:20 Senna/Docusate Sodium (Brigitte-Colace) 1 tab BID PO 07/16/17 09:00 07/19/17 08:19 Aspirin (Ecotrin Ec) 81 mg DAILY PO 07/17/17 09:00 07/19/17 08:20 Polymyxin/ Trimethoprim Sulfate (Polytrim Opht Soln) 1 drop Q6HR EACH EYE 07/18/17 12:00 07/19/17 06:00 (Maryann Ramirez) Physical Exam General General Appearance: Comfortable, Pale, Anxious (mild) (Maryann Ramirez) Eyes Eye Exam: Pupils Equal, Pupils Reactive (Maryann RamirezP) Ears & Nose Ears & Nose Exam: Nasal Mucosa [place] (pale) (Maryann RamirezP) Throat Throat Exam: Oral Mucosa [place] & Moist (pale) (Maryann RamirezP) Neck Neck Exam: Neck Supple, Trachea Midline (Maryann RamirezP) Pulmonary Resp Exam: Clear Bilaterally (Maryann RamirezP) Cardiology CV Exam: Arrhythmia, Bradycardia (Maryann Ramirez) Gastrointestinal/Abdomen GI Exam: Soft, Non-Tender, Bowel Sounds Present, Non-Distended (Maryann Ramirez) Musculoskeletal MS Exam: Joints Intact, Atrophy (Maryann Ramirez) Integumentary Skin Exam: Warm, Dry Skin Remarks Noted abrasions healing bilateral knees, status post fall left for head small laceration (Maryann Ramirez) Extremeties Extremities Exam: No Edema (Maryann Ramirez) Neurologic Neuro Exam: Awake (Maryann Ramirez) Assessment/Plan Problem List: (1) Bradycardia ICD Codes: R00.1 - Bradycardia, unspecified Status: Acute (2) Elevated troponin ICD Codes: R74.8 - Abnormal levels of other serum enzymes Status: Acute (3) Syncope ICD Codes: R55 - Syncope and collapse Status: Acute (4) Fall ICD Codes: W19.XXXA - Unspecified fall, initial encounter Status: Acute (5) Head injury, acute ICD Codes: S09.90XA - Unspecified injury of head, initial encounter Status: Acute (6) Skin tear of elbow without complication ICD Codes: S51.019A - Laceration without foreign body of unspecified elbow, initial encounter Status: Acute (7) Skin tear of left elbow without complication ICD Codes: S51.012A - Laceration without foreign body of left elbow, initial encounter Status: Acute (8) Mass of right lung ICD Codes: R91.8 - Other nonspecific abnormal finding of lung field Status: Acute (9) dementia Status: Chronic (10) Atrial fibrillation ICD Codes: I48.91 - Unspecified atrial fibrillation Status: Acute Assessment/Plan Vital signs reviewed, afebrile, heart rate slow trends between 34 and 54, Labs reviewed, leukocytosis initially seen now resolved Carotid ultrasound no major stenosis Bradycardia, symptomatic and severe Symptoms of syncopal episode with fall Probable secondary to low heart rate, continue monitoring with telemetry Appreciate cardiac consult and input, Dr. Isidro evaluated patient this past p.m. and spoke to family Okay to proceed with pacemaker, risk and benefit was explained in detail to family A. fib, new onset, slow ventricular response, Echo shows EF to be 55-60% ASA NSTEMI, Elevated troponin, Appreciate cardiac input, currently patient's been evaluated for pacemaker due to slow heart rate, noted over the past 24 hours 34-54 Patient denies any chest pain Dementia Medical management, patient is currently calm but has pleasant confusion, which is probably his baseline SCDs for DVT prophylaxis, aspirin Continue physical therapy for his mobility and strengthening, and for his safety , currently in 2-point wrist restraints DNR status D/W RN D/W Dr. Carranza, seen on his behalf No family present this morning (Maryann Ramirez) Assessment/Plan Patient seen and examined and as above Labs reviewed Appreciate natural remedy consultant help Medications reviewed Continue current management discussed with RN Appreciate consultants help. Pacer placement for Dr. Contreras (Cinthia Carranza MD) Problem Qualifiers (1) Syncope: Qualified Codes: R55 - Syncope and collapse (2) Fall: Qualified Codes: W19.XXXA - Unspecified fall, initial encounter (3) Head injury, acute: Qualified Codes: S09.90XA - Unspecified injury of head, initial encounter (4) Skin tear of elbow without complication: Qualified Codes: S51.011A - Laceration without foreign body of right elbow, initial encounter (5) Skin tear of left elbow without complication: Qualified Codes: S51.012A - Laceration without foreign body of left elbow, initial encounter (6) Atrial fibrillation: Qualified Codes: I48.91 - Unspecified atrial fibrillation Maryann Ramirez Jul 19, 2017 09:02 Cinthia Carranza MD Jul 19, 2017 16:12
--- NOTE | 2017-07-19 15:48 | PD.CARD.PN ---
Subjective Subjective Remarks asleep in nad Objective Vital Signs / I&O Vital Signs Date Time Temp Pulse Resp B/P (MAP) Pulse Ox O2 Delivery O2 Flow Rate FiO2 07/19/17 12:00 97.5 49 20 160/78 (105) 96 07/19/17 08:00 97.9 40 20 161/72 (101) 95 07/19/17 08:00 Room Air 07/19/17 08:00 39 07/19/17 04:00 98.2 34 18 148/88 (108) 97 07/19/17 00:00 98.2 48 18 173/74 (107) 94 07/18/17 20:59 Room Air 07/18/17 20:07 48 07/18/17 20:00 97.5 50 18 161/72 (101) 94 07/18/17 16:00 98.0 54 18 161/71 (101) 54 I/O 07/18/17 07/18/17 07/18/17 07/19/17 07/19/17 07/19/17 07:00 15:00 23:00 07:00 15:00 23:00 Intake Total 360 ml 720 ml 438 ml Output Total 200 ml 125 ml 600 ml Balance 160 ml 595 ml -162 ml Intake Oral 360 ml 720 ml IV Total 438 ml Output Urine Total 200 ml 125 ml 600 ml # Voids 2 2 # Bowel Movements 0 1 Physical Exam GENERAL: SKIN: Warm and dry. HEAD: Normocephalic. EYES: No scleral icterus. No injection or drainage. NECK: Supple, trachea midline. No JVD or lymphadenopathy. CARDIOVASCULAR: Regular rate and rhythm without murmurs, gallops, or rubs. RESPIRATORY: Breath sounds equal bilaterally. No accessory muscle use. GASTROINTESTINAL: Abdomen soft, non-tender, nondistended. MUSCULOSKELETAL: No cyanosis, or edema. BACK: Nontender without obvious deformity. No CVA tenderness. Assessment and Plan Problem List: (1) Bradycardia ICD Codes: R00.1 - Bradycardia, unspecified Status: Acute (2) Elevated troponin ICD Codes: R74.8 - Abnormal levels of other serum enzymes Status: Acute (3) Syncope ICD Codes: R55 - Syncope and collapse Status: Acute (4) Fall ICD Codes: W19.XXXA - Unspecified fall, initial encounter Status: Acute (5) Head injury, acute ICD Codes: S09.90XA - Unspecified injury of head, initial encounter Status: Acute (6) Skin tear of elbow without complication ICD Codes: S51.019A - Laceration without foreign body of unspecified elbow, initial encounter Status: Acute (7) Skin tear of left elbow without complication ICD Codes: S51.012A - Laceration without foreign body of left elbow, initial encounter Status: Acute (8) Mass of right lung ICD Codes: R91.8 - Other nonspecific abnormal finding of lung field Status: Acute (9) Eyebrow laceration ICD Codes: S01.119A - Laceration without foreign body of unspecified eyelid and periocular area, initial encounter Status: Acute (10) Dementia ICD Codes: F03.90 - Unspecified dementia without behavioral disturbance Status: Chronic (11) Atrial fibrillation ICD Codes: I48.91 - Unspecified atrial fibrillation Status: Acute (12) dementia Status: Chronic Assessment and Plan 1.) NSTEMI - assymptomatic, continue aspirin 81 mg qd, ldl=68, lfts elevated, family declines cath per nursing staff 2.) Bradycardia - ppm per DR Isidro 3.) Afib - rate controlled, continue aspirin, not good candidate for [employer] anticoagulation with coumadin or noac due to fall risk and dementia Problem Qualifiers (1) Syncope: Qualified Codes: R55 - Syncope and collapse (2) Fall: Qualified Codes: W19.XXXA - Unspecified fall, initial encounter (3) Head injury, acute: Qualified Codes: S09.90XA - Unspecified injury of head, initial encounter (4) Skin tear of elbow without complication: Qualified Codes: S51.011A - Laceration without foreign body of right elbow, initial encounter (5) Skin tear of left elbow without complication: Qualified Codes: S51.012A - Laceration without foreign body of left elbow, initial encounter (6) Eyebrow laceration: Qualified Codes: S01.112A - Laceration without foreign body of left eyelid and periocular area, initial encounter (7) Dementia: Qualified Codes: F03.90 - Unspecified dementia without behavioral disturbance (8) Atrial fibrillation: Qualified Codes: I48.91 - Unspecified atrial fibrillation Jaden Velázquez MD Jul 19, 2017 15:48
--- NOTE | 2017-07-19 23:47 | HHI.PR ---
Subjective Remarks Doing ok Objective Vital Signs Date Time Temp Pulse Resp B/P (MAP) Pulse Ox O2 Delivery O2 Flow Rate FiO2 07/19/17 20:54 Room Air 07/19/17 20:00 98.2 52 16 157/75 (102) 95 07/19/17 16:00 97.2 46 20 185/81 (115) 96 07/19/17 12:00 97.5 49 20 160/78 (105) 96 07/19/17 08:00 97.9 40 20 161/72 (101) 95 07/19/17 08:00 Room Air 07/19/17 08:00 39 07/19/17 04:00 98.2 34 18 148/88 (108) 97 07/19/17 00:00 98.2 48 18 173/74 (107) 94 I/O 07/19/17 07/19/17 07/19/17 07/20/17 07/20/17 07/20/17 07:00 15:00 23:00 07:00 15:00 23:00 Intake Total 438 ml 480 ml Output Total 600 ml 600 ml Balance -162 ml -120 ml Intake Oral 480 ml IV Total 438 ml Output Urine Total 600 ml 600 ml # Bowel Movements 3 Result Diagram: 07/16/1762807/16/17628 Imaging Alert, in bed, restraint Lungs: ventilated Heart: S1, S2 irregular, no gallop Abdomen: soft, no mass Ext: no edema Last Impressions Carotid Artery Ultrasound 07/16/17 0000 Signed Impressions: Service Date/Time: Sunday, July 16, 2017 19:36 - CONCLUSION: Mild bilateral plaque. There is no hemodynamically significant stenosis. Pako Hopkins MD Head CT 07/15/171858 Signed Impressions: Service Date/Time: Saturday, July 15, 2017 19:34 - CONCLUSION: 1. No acute abnormalities seen. 2. Chronic atrophy and a small area of encephalomalacia at the medial left temporal lobe. Lawrence Bruno MD Chest X-Ray 07/15/171858 Signed Impressions: Service Date/Time: Saturday, July 15, 2017 19:14 - CONCLUSION: 1. Diffuse prominence of the interstitial markings likely representing underlying interstitial disease or edema. 2. Increased density at the left base representing some degree of atelectasis or consolidation. Some degree of left effusion cannot be excluded. 3. Possible focal consolidation or mass in the right upper lung. This should be followed with future chest x-rays and further evaluated with a CT examination if it persists. Lawrence Bruno MD Wrist X-Ray 07/15/17 0000 Signed Impressions: Service Date/Time: Saturday, July 15, 2017 19:16 - CONCLUSION: No acute disease. Lawrence Bruno MD Shoulder X-Ray 07/15/17 Signed Impressions: Service Date/Time: Saturday, July 15, 2017 19:25 - CONCLUSION: No acute disease. Lawrence Bruno MD Pelvis X-Ray 07/15/17 Signed Impressions: Service Date/Time: Saturday, July 15, 2017 19:30 - CONCLUSION: No definite acute abnormality seen. Lawrence Bruno MD Elbow X-Ray 07/15/17 Signed Impressions: Service Date/Time: Saturday, July 15, 2017 19:18 - CONCLUSION: Unremarkable examination of the left elbow. Lawrence Bruno MD Chest CT 07/15/17 Signed Impressions: Service Date/Time: Saturday, July 15, 2017 22:24 - CONCLUSION: 1. Negative for acute traumatic injury in the thorax. 2. Bilateral chronic appearing pleural thickening and small loculated areas of pleural fluid. 3. Moderate coronary calcifications. Bones are osteopenic. Mynor Porras MD Cervical Spine CT 07/15/17 Signed Impressions: Service Date/Time: Saturday, July 15, 2017 19:34 - CONCLUSION: 1. No acute bony injury is seen. 2. Degenerative change involving the facet joints at multiple levels. Lawrence Bruno MD Current Medications Medications (Trade) Dose Ordered Sig/Mason Route Start Time Stop Time Status Last Admin (Flomax) 0.4 mg DAILY PO 07/16/17 09:00 07/19/17 08:20 (Aricept) 10 mg DAILY PO 07/16/17 09:00 Future Hold Sodium Chloride 1,000 ml @ 50 mls/hr Q20H IV 07/15/17 23:40 07/17/17 05:04 (NS Flush) 2 ml UNSCH PRN IV FLUSH 07/15/17 23:45 (NS Flush) 2 ml BID IV FLUSH 07/16/17 09:00 07/19/17 08:20 (Zofran Inj) 4 mg Q6H PRN IVP 07/15/17 23:45 (Narcan Inj) 0.4 mg UNSCH PRN IV 07/15/17 23:45 (Brigitte-Colace) 1 tab BID PO 07/16/17 09:00 07/19/17 20:50 (Milk Of Magnesia Liq) 30 ml Q12H PRN PO 07/15/17 23:45 (Senokot) 17.2 mg Q12H PRN PO 07/15/17 23:45 (Dulcolax Supp) 10 mg DAILY PRN RECTAL 07/15/17 23:45 (Lactulose Liq) 30 ml DAILY PRN PO 07/15/17 23:45 (Ecotrin Ec) 81 mg DAILY PO 07/17/17 09:00 07/19/17 08:20 (Polytrim Opht Soln) 1 drop Q6HR EACH EYE 07/18/17 12:00 07/19/17 23:06 Assessment and Plan Problem List: (1) Syncope ICD Codes: R55 - Syncope and collapse Status: Acute Plan: No new episode reported (2) Bradycardia ICD Codes: R00.1 - Bradycardia, unspecified Status: Acute Plan: Pacer scheduled Patient restraint Disoriented Pacer cannot be implanred because of risk for beeding Will be reevaluated in AM. (3) Atrial fibrillation ICD Codes: I48.91 - Unspecified atrial fibrillation Status: Acute Plan: In afib. HR control Problem Qualifiers (1) Syncope: Qualified Codes: R55 - Syncope and collapse (2) Atrial fibrillation: Qualified Codes: I48.91 - Unspecified atrial fibrillation Shanita Isidro MD Jul 19, 2017 23:47
[2017-07-20] VITALS (7 sets, daily range): BP systolic 164–180; BP diastolic 74–83; PULSE 40–79; RESP 18–24; TEMP 97.4–98.9; O2SAT 91–94
[2017-07-20] MEDS: POLYMYXIN/TRIMETHOPRIM OPHT SOLN 10 ML BTL EACH EYE SCH ×3 (06:00→21:33)
[2017-07-20] MEDS: TAMSULOSIN HCL 0.4 MG CAP PO SCH (07:49)
[2017-07-20] MEDS: DOCUSATE SODIUM 50 MG/SENNA 8.6 MG TAB PO SCH ×2 (07:50→21:32)
[2017-07-20] MEDS: ASPIRIN EC 81 MG TABEC PO SCH (07:50)
[2017-07-20] MEDS: SODIUM CHLORIDE 0.9% FLUSH 10 ML FLUSH IV FLUSH SCH ×2 (07:50→21:33)
[2017-07-20 08:53] LABS: HEMATOCRIT 41.2 % (39.0-51.0); MEAN CELL VOLUME 94.8 FL (80.0-100.0); MEAN CORPUSCULAR HEMOGLOBIN 31.8 PG (27.0-34.0); MEAN CORPUSCULAR HGB CONC 33.5 % (32.0-36.0); PLATELET COUNT 129 TH/MM3 (150-450); RED BLOOD COUNT 4.35 MIL/MM3 (4.50-5.90); RED CELL DISTRIBUTION WIDTH 14.9 % (11.6-17.2); REVIEW FLAG FINAL; WHITE BLOOD COUNT 4.5 TH/MM3 (4.0-11.0)
[2017-07-20 09:09] LABS: BICARBONATE 26.5 MEQ/L (21.0-32.0); POTASSIUM 3.8 MEQ/L (3.5-5.1)
--- NOTE | 2017-07-20 10:24 | HHI.PR ---
Subjective Subjective Remarks Resting in the bed more alert today Participate in some simple conversation Color pale Multiple abrasions noted bilateral knees, left forehead (Maryann Ramirez) Review of Systems Constitutional Constitutional: Fatigue (generalized), Weakness Constitutional Remarks Simple ROS assessment (Maryann Ramirez) Cardiology CV Remarks Slow heart rate (Maryann Ramirez) Psychiatric Psychiatric: Normal Mood, Anxiety (mild) (Maryann Ramirez) Vitals/Results Vital Signs Vital Signs Date Time Temp Pulse Resp B/P (MAP) Pulse Ox O2 Delivery O2 Flow Rate FiO2 07/20/17 04:00 98.5 51 20 167/74 (105) 94 07/20/17 00:00 97.4 79 24 164/77 (106) 93 07/19/17 20:54 Room Air 07/19/17 20:31 46 07/19/17 20:00 98.2 52 16 157/75 (102) 95 07/19/17 16:00 97.2 46 20 185/81 (115) 96 07/19/17 12:00 97.5 49 20 160/78 (105) 96 (Maryann Ramirez) CBC/BMP: 07/20/17 0730 07/20/17 0730 Lab Results Laboratory Tests Test 07/20/17 07:30 White Blood Count 4.5 TH/MM3 Red Blood Count 4.35 MIL/MM3 Hemoglobin 13.8 GM/DL Hematocrit 41.2 % Mean Corpuscular Volume 94.8 FL Mean Corpuscular Hemoglobin 31.8 PG Mean Corpuscular Hemoglobin Concent 33.5 % Red Cell Distribution Width 14.9 % Platelet Count 129 TH/MM3 Mean Platelet Volume 9.2 FL Blood Urea Nitrogen 14 MG/DL Creatinine 0.79 MG/DL Random Glucose 85 MG/DL Calcium Level 8.4 MG/DL Sodium Level 143 MEQ/L Potassium Level 3.8 MEQ/L Chloride Level 109 MEQ/L Carbon Dioxide Level 26.5 MEQ/L Anion Gap 8 MEQ/L Estimat Glomerular Filtration Rate 93 ML/MIN Current Medications Administered Medications Medications (Trade) Dose Ordered Sig/Mason Route PRN Reason Start Time Stop Time Status Last Admin Dose Admin Tamsulosin HCl (Flomax) 0.4 mg DAILY PO 07/16/17 09:00 07/20/17 07:49 Sodium Chloride 1,000 ml @ 50 mls/hr Q20H IV 07/15/17 23:40 07/17/17 05:04 Sodium Chloride (NS Flush) 2 ml BID IV FLUSH 07/16/17 09:00 07/20/17 07:50 Senna/Docusate Sodium (Brigitte-Colace) 1 tab BID PO 07/16/17 09:00 07/20/17 07:50 Aspirin (Ecotrin Ec) 81 mg DAILY PO 07/17/17 09:00 07/20/17 07:50 Polymyxin/ Trimethoprim Sulfate (Polytrim Opht Soln) 1 drop Q6HR EACH EYE 07/18/17 12:00 07/20/17 06:00 (Maryann Ramirez) Physical Exam General General Appearance: No Acute Distress, Pale, Anxious (mild) (Maryann Ramirez) Eyes Eye Exam: Pupils Equal, Pupils Reactive (Maryann Ramirez) Ears & Nose Ears & Nose Exam: Nasal Mucosa [place] (pale) (Maryann Ramirez) Throat Throat Exam: Oral Mucosa [place] & Moist (pale) (Maryann Ramirez) Neck Neck Exam: Neck Supple, Trachea Midline (Maryann Ramirez) Pulmonary Resp Exam: Clear Bilaterally, Poor Inspiratory Effort (encouraged to turn cough and deep breathe) (Maryann Ramirez) Cardiology CV Exam: Arrhythmia, Bradycardia (Maryann Ramirez) Gastrointestinal/Abdomen GI Exam: Soft, Non-Tender, Bowel Sounds Present, Non-Distended (Maryann Ramirez) Musculoskeletal MS Exam: Joints Intact, Atrophy (Maryann Ramirez) Integumentary Skin Exam: Warm, Dry Skin Remarks Noted abrasions healing bilateral knees, status post fall left for head small laceration (Maryann Ramirez) Extremeties Extremities Exam: No Edema (Maryann Ramirez) Neurologic Neuro Exam: Awake (Maryann Ramirez) Assessment/Plan Problem List: (1) Bradycardia ICD Codes: R00.1 - Bradycardia, unspecified Status: Acute (2) Elevated troponin ICD Codes: R74.8 - Abnormal levels of other serum enzymes Status: Acute (3) Syncope ICD Codes: R55 - Syncope and collapse Status: Acute (4) Fall ICD Codes: W19.XXXA - Unspecified fall, initial encounter Status: Acute (5) Head injury, acute ICD Codes: S09.90XA - Unspecified injury of head, initial encounter Status: Acute (6) Skin tear of elbow without complication ICD Codes: S51.019A - Laceration without foreign body of unspecified elbow, initial encounter Status: Acute (7) Skin tear of left elbow without complication ICD Codes: S51.012A - Laceration without foreign body of left elbow, initial encounter Status: Acute (8) Mass of right lung ICD Codes: R91.8 - Other nonspecific abnormal finding of lung field Status: Acute (9) dementia Status: Chronic (10) Atrial fibrillation ICD Codes: I48.91 - Unspecified atrial fibrillation Status: Acute Assessment/Plan Vital signs reviewed, afebrile, bradycardia still persist heart rate 51 and above Labs reviewed, leukocytosis initially seen now resolved Carotid ultrasound no major stenosis Bradycardia, symptomatic and severe Symptoms of syncopal episode with fall Appreciate cardiac consult and input, Dr. Isidro pending pacemaker placement, but caution due to possible bleeding complication Will reevaluate today NSTEMI, Elevated troponin, stable with aspirin Dementia Medical management, stable SCDs for DVT prophylaxis, aspirin Continue physical therapy for his mobility and strengthening, and for his safety DNR status D/W RN, no family present D/W Dr. Carranza, seen on his behalf (Maryann Ramirez) Assessment/Plan pt seen and dominant as above next and [id number] time spent with patient Labs reviewed Discussed with rubber flap tuber machine operator he will do pacemaker tomorrow. As discussed will keep patient on Haldol on when necessary basis to make sure he will not do any agitation or movement of his lower extremities which can cause bleeding after pacemaker. Plan of care discussed with JAVA SYBASE DEVELOPER Discussed with RN (Cinthia Carranza MD) Problem Qualifiers (1) Syncope: Qualified Codes: R55 - Syncope and collapse (2) Fall: Qualified Codes: W19.XXXA - Unspecified fall, initial encounter (3) Head injury, acute: Qualified Codes: S09.90XA - Unspecified injury of head, initial encounter (4) Skin tear of elbow without complication: Qualified Codes: S51.011A - Laceration without foreign body of right elbow, initial encounter (5) Skin tear of left elbow without complication: Qualified Codes: S51.012A - Laceration without foreign body of left elbow, initial encounter (6) Atrial fibrillation: Qualified Codes: I48.91 - Unspecified atrial fibrillation Maryann Ramirez Jul 20, 2017 10:24 Cinthia Carranza MD Jul 20, 2017 14:36
--- NOTE | 2017-07-20 13:23 | PD.CARD.PN ---
Subjective Subjective Remarks alert in nad Objective Vital Signs / I&O Vital Signs Date Time Temp Pulse Resp B/P (MAP) Pulse Ox O2 Delivery O2 Flow Rate FiO2 07/20/17 12:00 97.4 49 18 166/75 (105) 93 07/20/17 08:00 97.9 40 18 180/83 (115) 93 07/20/17 04:00 98.5 51 20 167/74 (105) 94 07/20/17 00:00 97.4 79 24 164/77 (106) 93 07/19/17 20:54 Room Air 07/19/17 20:31 46 07/19/17 20:00 98.2 52 16 157/75 (102) 95 07/19/17 16:00 97.2 46 20 185/81 (115) 96 I/O 07/19/17 07/19/17 07/19/17 07/20/17 07/20/17 07/20/17 06:59 14:59 22:59 06:59 14:59 22:59 Intake Total 438 ml 480 ml Output Total 600 ml 600 ml 400 ml Balance -162 ml -120 ml -400 ml Intake Oral 480 ml IV Total 438 ml Output Urine Total 600 ml 600 ml 400 ml # Bowel Movements 3 Physical Exam GENERAL: SKIN: Warm and dry. HEAD: Normocephalic. EYES: No scleral icterus. No injection or drainage. NECK: Supple, trachea midline. No JVD or lymphadenopathy. CARDIOVASCULAR: Regular rate and rhythm without murmurs, gallops, or rubs. RESPIRATORY: Breath sounds equal bilaterally. No accessory muscle use. GASTROINTESTINAL: Abdomen soft, non-tender, nondistended. MUSCULOSKELETAL: No cyanosis, or edema. BACK: Nontender without obvious deformity. No CVA tenderness. Laboratory Laboratory Tests Test 07/20/17 07:30 White Blood Count 4.5 TH/MM3 Red Blood Count 4.35 MIL/MM3 Hemoglobin 13.8 GM/DL Hematocrit 41.2 % Mean Corpuscular Volume 94.8 FL Mean Corpuscular Hemoglobin 31.8 PG Mean Corpuscular Hemoglobin Concent 33.5 % Red Cell Distribution Width 14.9 % Platelet Count 129 TH/MM3 Mean Platelet Volume 9.2 FL Blood Urea Nitrogen 14 MG/DL Creatinine 0.79 MG/DL Random Glucose 85 MG/DL Calcium Level 8.4 MG/DL Sodium Level 143 MEQ/L Potassium Level 3.8 MEQ/L Chloride Level 109 MEQ/L Carbon Dioxide Level 26.5 MEQ/L Anion Gap 8 MEQ/L Estimat Glomerular Filtration Rate 93 ML/MIN Assessment and Plan Problem List: (1) Bradycardia ICD Codes: R00.1 - Bradycardia, unspecified Status: Acute (2) Elevated troponin ICD Codes: R74.8 - Abnormal levels of other serum enzymes Status: Acute (3) Syncope ICD Codes: R55 - Syncope and collapse Status: Acute (4) Fall ICD Codes: W19.XXXA - Unspecified fall, initial encounter Status: Acute (5) Head injury, acute ICD Codes: S09.90XA - Unspecified injury of head, initial encounter Status: Acute (6) Skin tear of elbow without complication ICD Codes: S51.019A - Laceration without foreign body of unspecified elbow, initial encounter Status: Acute (7) Skin tear of left elbow without complication ICD Codes: S51.012A - Laceration without foreign body of left elbow, initial encounter Status: Acute (8) Mass of right lung ICD Codes: R91.8 - Other nonspecific abnormal finding of lung field Status: Acute (9) Eyebrow laceration ICD Codes: S01.119A - Laceration without foreign body of unspecified eyelid and periocular area, initial encounter Status: Acute (10) Dementia ICD Codes: F03.90 - Unspecified dementia without behavioral disturbance Status: Chronic (11) Atrial fibrillation ICD Codes: I48.91 - Unspecified atrial fibrillation Status: Acute (12) dementia Status: Chronic Assessment and Plan 1.) NSTEMI - assymptomatic, continue aspirin 81 mg qd, ldl=68, lfts elevated, family declines cath per nursing staff 2.) Bradycardia - ppm per DR Isidro 3.) Afib - rate controlled, continue aspirin, not good candidate for watermelon inspector anticoagulation with coumadin or noac due to fall risk and dementia Problem Qualifiers (1) Syncope: Qualified Codes: R55 - Syncope and collapse (2) Fall: Qualified Codes: W19.XXXA - Unspecified fall, initial encounter (3) Head injury, acute: Qualified Codes: S09.90XA - Unspecified injury of head, initial encounter (4) Skin tear of elbow without complication: Qualified Codes: S51.011A - Laceration without foreign body of right elbow, initial encounter (5) Skin tear of left elbow without complication: Qualified Codes: S51.012A - Laceration without foreign body of left elbow, initial encounter (6) Eyebrow laceration: Qualified Codes: S01.112A - Laceration without foreign body of left eyelid and periocular area, initial encounter (7) Dementia: Qualified Codes: F03.90 - Unspecified dementia without behavioral disturbance (8) Atrial fibrillation: Qualified Codes: I48.91 - Unspecified atrial fibrillation Jaden Velázquez MD Jul 20, 2017 13:23
[2017-07-20] MEDS: SODIUM CHLOR 0.9% 1000 ML INJ 1,000 ML IV SCH (21:32)
[2017-07-21] VITALS: BP 156/75; PULSE 58; RESP 18; TEMP 98.7; O2SAT 93
[2017-07-21 04:00] VITALS: BP 175/77; PULSE 43; RESP 18; TEMP 98; O2SAT 93
[2017-07-21] MEDS: POLYMYXIN/TRIMETHOPRIM OPHT SOLN 10 ML BTL EACH EYE SCH ×3 (06:14→16:33)
[2017-07-21 08:00] VITALS: BP 171/77; PULSE 39; PULSE 43; RESP 16; TEMP 98.1; O2SAT 93
[2017-07-21] MEDS: SODIUM CHLORIDE 0.9% FLUSH 10 ML FLUSH IV FLUSH SCH (09:00)
[2017-07-21] MEDS: ASPIRIN EC 81 MG TABEC PO SCH (10:07)
[2017-07-21] MEDS: DOCUSATE SODIUM 50 MG/SENNA 8.6 MG TAB PO SCH (10:07)
[2017-07-21] MEDS: TAMSULOSIN HCL 0.4 MG CAP PO SCH (10:07)
--- NOTE | 2017-07-21 10:20 | HHI.PR ---
Subjective Subjective Remarks Patient is awake, alert, oriented to self and place Wants to get out of bed wants to eat refused PPM today, procedure on hold remains with bradycardia, afib SVR Review of Systems Constitutional Constitutional Remarks unable to obtain ROS Vitals/Results Vital Signs Vital Signs Date Time Temp Pulse Resp B/P (MAP) Pulse Ox O2 Delivery O2 Flow Rate FiO2 07/21/17 08:00 98.1 39 16 171/77 (108) 93 07/21/17 04:00 98.0 43 18 175/77 (109) 93 07/21/17 00:00 98.7 58 18 156/75 (102) 93 07/20/17 20:03 98.9 56 18 170/76 (107) 92 07/20/17 20:00 53 07/20/17 20:00 Room Air 07/20/17 15:42 98.8 54 18 174/77 (109) 91 07/20/17 12:00 97.4 49 18 166/75 (105) 93 CBC/BMP: 07/20/17 0730 07/20/17 0730 Physical Exam General General Appearance: Well Developed, No Acute Distress, Comfortable, Pale, Anxious Eyes Eye Exam: Pupils Equal, Pupils Reactive Eye Remarks bruising, skin lac with steristrips Ears & Nose Ears & Nose Exam: Nasal Mucosa [place] Throat Throat Exam: Oral Mucosa [place] & Moist Neck Neck Exam: Neck Supple, Trachea Midline Pulmonary Resp Exam: Clear Bilaterally, Poor Inspiratory Effort (encouraged to turn cough and deep breathe) Cardiology CV Exam: Arrhythmia, Bradycardia Gastrointestinal/Abdomen GI Exam: Soft, Non-Tender, Bowel Sounds Present, Non-Distended Musculoskeletal MS Exam: Joints Intact, Atrophy Integumentary Skin Exam: Warm, Dry Skin Remarks bruising, abrasion Extremeties Extremities Exam: No Edema Neurologic Neuro Exam: Alert, Awake, Speech Clear, Moving All Extremities, No Focal Deficits Assessment/Plan Problem List: (1) Bradycardia ICD Codes: R00.1 - Bradycardia, unspecified Status: Acute (2) Elevated troponin ICD Codes: R74.8 - Abnormal levels of other serum enzymes Status: Acute (3) Syncope ICD Codes: R55 - Syncope and collapse Status: Acute (4) Fall ICD Codes: W19.XXXA - Unspecified fall, initial encounter Status: Acute (5) Head injury, acute ICD Codes: S09.90XA - Unspecified injury of head, initial encounter Status: Acute (6) Skin tear of elbow without complication ICD Codes: S51.019A - Laceration without foreign body of unspecified elbow, initial encounter Status: Acute (7) Skin tear of left elbow without complication ICD Codes: S51.012A - Laceration without foreign body of left elbow, initial encounter Status: Acute (8) Mass of right lung ICD Codes: R91.8 - Other nonspecific abnormal finding of lung field Status: Acute (9) dementia Status: Chronic (10) Atrial fibrillation ICD Codes: I48.91 - Unspecified atrial fibrillation Status: Acute Assessment/Plan 86-year-old elderly male history of dementia, presented after a fall, possible syncopal episode. Events are unclear as to what led to the fall Possible syncopal episode with fall A. fib, new onset, slow ventricular response -Continuous cardiac telemetry -continue to hold Namenda and Aricept. -Continue with IV fluids-50/hr -2-D echo ok EF 55-60% -continue ASA, not a candidate for anticoagulation due to falls, risk of injury. -Carotid ultrasound-no stenosis -tele reviewed, afib with SVR, pauses -card recommends further work up for ischemic heart disease.d/w family at length , they want non invasive measure, no cath, no pacemaker, maybe STT pt. had been referred to Dr. Almendarez for "low heart rate" as his PCP thought he may need PPM, however family held off on seeing card. -Appreciate Dr. Isidro's input. -PPM cancelled today, pt. refused. High risk for bleeding as well. -d/w daughter, she discussed with brother, doesn't want procedure. Meeting with hospice Elevated troponin, denies chest pain NSTEMI -Serial cardiac enzymes done -continue with ASA -Lipid profile done -Appreciate card input. Dementia -Continue to monitor History of recurrent sarcoma, had recent excision -Stable, continue to monitor SCDs for DVT prophylaxis PT eval OOB to chair with assistance DNR status d/w pt's daughter, she is declining procedure. She and brother are meeting with hospice today. d/w account liaison hospice, Nafisa, unsure where pt. may go with hospice. D/W RN D/W pt and daughter D/W Dr. Carranza D/W Nafisa, account liaison hospice This patient was seen by myself and Dr. Carranza, this note is written his behalf Problem Qualifiers (1) Syncope: Qualified Codes: R55 - Syncope and collapse (2) Fall: Qualified Codes: W19.XXXA - Unspecified fall, initial encounter (3) Head injury, acute: Qualified Codes: S09.90XA - Unspecified injury of head, initial encounter (4) Skin tear of elbow without complication: Qualified Codes: S51.011A - Laceration without foreign body of right elbow, initial encounter (5) Skin tear of left elbow without complication: Qualified Codes: S51.012A - Laceration without foreign body of left elbow, initial encounter (6) Atrial fibrillation: Qualified Codes: I48.91 - Unspecified atrial fibrillation Lara Hassan Jul 21, 2017 10:20
[2017-07-21 12:00] VITALS: BP 170/76; PULSE 40; RESP 16; TEMP 97.5; O2SAT 95
--- NOTE | 2017-07-21 12:45 | PD.CARD.PN ---
Subjective Subjective Remarks alert in nad Objective Vital Signs / I&O Vital Signs Date Time Temp Pulse Resp B/P (MAP) Pulse Ox O2 Delivery O2 Flow Rate FiO2 07/21/17 08:00 98.1 39 16 171/77 (108) 93 07/21/17 08:00 Room Air 07/21/17 08:00 43 07/21/17 04:00 98.0 43 18 175/77 (109) 93 07/21/17 00:00 98.7 58 18 156/75 (102) 93 07/20/17 20:03 98.9 56 18 170/76 (107) 92 07/20/17 20:00 53 07/20/17 20:00 Room Air 07/20/17 15:42 98.8 54 18 174/77 (109) 91 I/O 07/20/17 07/20/17 07/20/17 07/21/17 07/21/17 07/21/17 07:00 15:00 23:00 07:00 15:00 23:00 Intake Total 480 ml 772 ml 0 ml Output Total 400 ml 300 ml Balance -400 ml 180 ml 772 ml 0 ml Intake Oral 480 ml 320 ml 0 ml IV Total 452 ml Output Urine Total 400 ml 300 ml # Voids 2 3 2 # Bowel Movements 0 0 0 Physical Exam GENERAL: SKIN: Warm and dry. HEAD: Normocephalic. EYES: No scleral icterus. No injection or drainage. NECK: Supple, trachea midline. No JVD or lymphadenopathy. CARDIOVASCULAR: Regular rate and rhythm without murmurs, gallops, or rubs. RESPIRATORY: Breath sounds equal bilaterally. No accessory muscle use. GASTROINTESTINAL: Abdomen soft, non-tender, nondistended. MUSCULOSKELETAL: No cyanosis, or edema. BACK: Nontender without obvious deformity. No CVA tenderness. Assessment and Plan Problem List: (1) Bradycardia ICD Codes: R00.1 - Bradycardia, unspecified Status: Acute (2) Elevated troponin ICD Codes: R74.8 - Abnormal levels of other serum enzymes Status: Acute (3) Syncope ICD Codes: R55 - Syncope and collapse Status: Acute (4) Fall ICD Codes: W19.XXXA - Unspecified fall, initial encounter Status: Acute (5) Head injury, acute ICD Codes: S09.90XA - Unspecified injury of head, initial encounter Status: Acute (6) Skin tear of elbow without complication ICD Codes: S51.019A - Laceration without foreign body of unspecified elbow, initial encounter Status: Acute (7) Skin tear of left elbow without complication ICD Codes: S51.012A - Laceration without foreign body of left elbow, initial encounter Status: Acute (8) Mass of right lung ICD Codes: R91.8 - Other nonspecific abnormal finding of lung field Status: Acute (9) Eyebrow laceration ICD Codes: S01.119A - Laceration without foreign body of unspecified eyelid and periocular area, initial encounter Status: Acute (10) Dementia ICD Codes: F03.90 - Unspecified dementia without behavioral disturbance Status: Chronic (11) Atrial fibrillation ICD Codes: I48.91 - Unspecified atrial fibrillation Status: Acute (12) dementia Status: Chronic Assessment and Plan 1.) NSTEMI - assymptomatic, continue aspirin 81 mg qd, ldl=68, lfts elevated, family declines cath per nursing staff 2.) Bradycardia - ppm declined per DR Isidro and family, nursing reports palliative care consult placed and hospice requested by family 3.) Afib - rate controlled, continue aspirin, not good candidate for long term care phlebotomist anticoagulation with coumadin or noac due to fall risk and dementia Problem Qualifiers (1) Syncope: Qualified Codes: R55 - Syncope and collapse (2) Fall: Qualified Codes: W19.XXXA - Unspecified fall, initial encounter (3) Head injury, acute: Qualified Codes: S09.90XA - Unspecified injury of head, initial encounter (4) Skin tear of elbow without complication: Qualified Codes: S51.011A - Laceration without foreign body of right elbow, initial encounter (5) Skin tear of left elbow without complication: Qualified Codes: S51.012A - Laceration without foreign body of left elbow, initial encounter (6) Eyebrow laceration: Qualified Codes: S01.112A - Laceration without foreign body of left eyelid and periocular area, initial encounter (7) Dementia: Qualified Codes: F03.90 - Unspecified dementia without behavioral disturbance (8) Atrial fibrillation: Qualified Codes: I48.91 - Unspecified atrial fibrillation Jaden Velázquez MD Jul 21, 2017 12:45
--- NOTE | 2017-07-21 15:52 | HHI.PR ---
Subjective Remarks I don't want a pacemaker Objective Vital Signs Date Time Temp Pulse Resp B/P (MAP) Pulse Ox O2 Delivery O2 Flow Rate FiO2 07/21/17 12:00 97.5 40 16 170/76 (107) 95 07/21/17 08:00 98.1 39 16 171/77 (108) 93 07/21/17 08:00 Room Air 07/21/17 08:00 43 07/21/17 04:00 98.0 43 18 175/77 (109) 93 07/21/17 00:00 98.7 58 18 156/75 (102) 93 07/20/17 20:03 98.9 56 18 170/76 (107) 92 07/20/17 20:00 53 07/20/17 20:00 Room Air I/O 07/20/17 07/20/17 07/20/17 07/21/17 07/21/17 07/21/17 07:00 15:00 23:00 07:00 15:00 23:00 Intake Total 480 ml 772 ml 0 ml Output Total 400 ml 300 ml Balance -400 ml 180 ml 772 ml 0 ml Intake Oral 480 ml 320 ml 0 ml IV Total 452 ml Output Urine Total 400 ml 300 ml # Voids 2 3 2 # Bowel Movements 0 0 0 Result Diagram: 07/20/1730 07/20/17729 Imaging Alert, fully oriented Lungs: ventilated Heart: S1, S2 ireegular abdomen: soft, no mass Last Impressions Carotid Artery Ultrasound 07/16/17 0000 Signed Impressions: Service Date/Time: Sunday, July 16, 2017 19:36 - CONCLUSION: Mild bilateral plaque. There is no hemodynamically significant stenosis. Pako Hopkins MD Head CT 07/15/171858 Signed Impressions: Service Date/Time: Saturday, July 15, 2017 19:34 - CONCLUSION: 1. No acute abnormalities seen. 2. Chronic atrophy and a small area of encephalomalacia at the medial left temporal lobe. Lawrence Bruno MD Chest X-Ray 07/15/171858 Signed Impressions: Service Date/Time: Saturday, July 15, 2017 19:14 - CONCLUSION: 1. Diffuse prominence of the interstitial markings likely representing underlying interstitial disease or edema. 2. Increased density at the left base representing some degree of atelectasis or consolidation. Some degree of left effusion cannot be excluded. 3. Possible focal consolidation or mass in the right upper lung. This should be followed with future chest x-rays and further evaluated with a CT examination if it persists. Lawrence Bruno MD Wrist X-Ray 07/15/17 0000 Signed Impressions: Service Date/Time: Saturday, July 15, 2017 19:16 - CONCLUSION: No acute disease. Lawrence Bruno MD Shoulder X-Ray 07/15/17 Signed Impressions: Service Date/Time: Saturday, July 15, 2017 19:25 - CONCLUSION: No acute disease. Lawrence Bruno MD Pelvis X-Ray 07/15/17 Signed Impressions: Service Date/Time: Saturday, July 15, 2017 19:30 - CONCLUSION: No definite acute abnormality seen. Lawrence Bruno MD Elbow X-Ray 07/15/17 Signed Impressions: Service Date/Time: Saturday, July 15, 2017 19:18 - CONCLUSION: Unremarkable examination of the left elbow. Lawrence Bruno MD Chest CT 07/15/17 0000 Signed Impressions: Service Date/Time: Saturday, July 15, 2017 22:24 - CONCLUSION: 1. Negative for acute traumatic injury in the thorax. 2. Bilateral chronic appearing pleural thickening and small loculated areas of pleural fluid. 3. Moderate coronary calcifications. Bones are osteopenic. Mynor Porras MD Cervical Spine CT 07/15/17 Signed Impressions: Service Date/Time: Saturday, July 15, 2017 19:34 - CONCLUSION: 1. No acute bony injury is seen. 2. Degenerative change involving the facet joints at multiple levels. Lawrence Bruno MD Current Medications Medications (Trade) Dose Ordered Sig/Mason Route Start Time Stop Time Status Last Admin (Flomax) 0.4 mg DAILY PO 07/16/17 09:00 07/21/17 10:07 (Aricept) 10 mg DAILY PO 07/16/17 09:00 Future Hold Sodium Chloride 1,000 ml @ 50 mls/hr Q20H IV 07/15/17 23:40 07/20/17 21:32 (NS Flush) 2 ml UNSCH PRN IV FLUSH 07/15/17 23:45 (NS Flush) 2 ml BID IV FLUSH 07/16/17 09:00 07/20/17 21:33 (Zofran Inj) 4 mg Q6H PRN IVP 07/15/17 23:45 (Narcan Inj) 0.4 mg UNSCH PRN IV 07/15/17 23:45 (Brigitte-Colace) 1 tab BID PO 07/16/17 09:00 07/21/17 10:07 (Milk Of Magnesia Liq) 30 ml Q12H PRN PO 07/15/17 23:45 (Senokot) 17.2 mg Q12H PRN PO 07/15/17 23:45 (Dulcolax Supp) 10 mg DAILY PRN RECTAL 07/15/17 23:45 (Lactulose Liq) 30 ml DAILY PRN PO 07/15/17 23:45 (Ecotrin Ec) 81 mg DAILY PO 07/17/17 09:00 07/21/17 10:07 (Polytrim Opht Soln) 1 drop Q6HR EACH EYE 07/18/17 12:00 07/21/17 12:39 Assessment and Plan Problem List: (1) Syncope ICD Codes: R55 - Syncope and collapse Status: Acute Plan: No new episode. patient was scheduled this morning for pacer insertion due to symptomatic severe bradycardia. While on the table he refused the procedure. Case was cancel. Patient can be referred to palliative care I will follow him on a PRN basis (2) Bradycardia ICD Codes: R00.1 - Bradycardia, unspecified Status: Acute Plan: Pacer refused pacer insertion (3) Atrial fibrillation ICD Codes: I48.91 - Unspecified atrial fibrillation Status: Acute Plan: In afib. HR control Problem Qualifiers (1) Syncope: Qualified Codes: R55 - Syncope and collapse (2) Atrial fibrillation: Qualified Codes: I48.91 - Unspecified atrial fibrillation Shanita Isidro MD Jul 21, 2017 15:52
[2017-07-21 16:00] VITALS: BP 163/81; PULSE 45; RESP 18; TEMP 98; O2SAT 92
[2017-07-21] MEDS ORDERED: ASPI-99 PO (16:09)
--- NOTE | 2017-07-21 16:10 | HHI.DCPOC ---
Discharge Care Plan Diagnosis: (1) Atrial fibrillation (2) Syncope (3) Elevated troponin (4) Fall (5) Head injury, acute (6) Skin tear of elbow without complication (7) Skin tear of left elbow without complication (8) Mass of right lung (9) Eyebrow laceration (10) Dementia (11) dementia (12) Bradycardia Your Health Problems Are: Anxiety Difficulty with ADL Skin Breakdown Goals to Promote Your Health * To prevent worsening of your condition and complications * To maintain your health at the optimal level Directions to Meet Your Goals Take your medications as prescribed Follow your dietary instruction Follow activity as directed Keep your appointments as scheduled Take your immunizations and boosters as scheduled If your symptoms worsen call your PCP, if no PCP go to Urgent Care Center or Emergency Room Smoking is Dangerous to Your Health. Avoid second hand smoke Call the 24-hour hour crisis hotline for domestic abuse at [facility]. [facility] Jul 21, 2017 16:10
--- NOTE | 2017-07-22 18:52 | HHI.DS ---
Discharge Summary Admission Date Jul 17, 2017 at 13:04 Discharge Date: Jul 21, 2017 Admitting Diagnosis fall, syncope, positive troponin, skin tears (1) Elevated troponin ICD Codes: R74.8 - Abnormal levels of other serum enzymes Status: Acute (2) Syncope ICD Codes: R55 - Syncope and collapse Status: Acute (3) Fall ICD Codes: W19.XXXA - Unspecified fall, initial encounter Status: Acute (4) Skin tear of elbow without complication ICD Codes: S51.019A - Laceration without foreign body of unspecified elbow, initial encounter Status: Acute (5) Skin tear of left elbow without complication ICD Codes: S51.012A - Laceration without foreign body of left elbow, initial encounter Status: Acute (6) Eyebrow laceration ICD Codes: S01.119A - Laceration without foreign body of unspecified eyelid and periocular area, initial encounter Status: Acute (7) Dementia ICD Codes: F03.90 - Unspecified dementia without behavioral disturbance Status: Chronic (8) Atrial fibrillation ICD Codes: I48.91 - Unspecified atrial fibrillation Status: Acute CBC/BMP: 07/20/17 0730 07/20/17 0730 Significant Findings Laboratory Tests Test 07/20/17 07:30 Red Blood Count 4.35 MIL/MM3 (4.50-5.90) Platelet Count 129 TH/MM3 (150-450) Calcium Level 8.4 MG/DL (8.5-10.1) Chloride Level 109 MEQ/L (98-107) Imaging Last Impressions Carotid Artery Ultrasound 07/16/17 0000 Signed Impressions: Service Date/Time: Sunday, July 16, 2017 19:36 - CONCLUSION: Mild bilateral plaque. There is no hemodynamically significant stenosis. Pako Hopkins MD Head CT 07/15/171858 Signed Impressions: Service Date/Time: Saturday, July 15, 2017 19:34 - CONCLUSION: 1. No acute abnormalities seen. 2. Chronic atrophy and a small area of encephalomalacia at the medial left temporal lobe. Lawrence Bruno MD Chest X-Ray 07/15/171858 Signed Impressions: Service Date/Time: Saturday, July 15, 2017 19:14 - CONCLUSION: 1. Diffuse prominence of the interstitial markings likely representing underlying interstitial disease or edema. 2. Increased density at the left base representing some degree of atelectasis or consolidation. Some degree of left effusion cannot be excluded. 3. Possible focal consolidation or mass in the right upper lung. This should be followed with future chest x-rays and further evaluated with a CT examination if it persists. Lawrence Bruno MD Wrist X-Ray 07/15/17 Signed Impressions: Service Date/Time: Saturday, July 15, 2017 19:16 - CONCLUSION: No acute disease. Lawrence Bruno MD Shoulder X-Ray 07/15/17 Signed Impressions: Service Date/Time: Saturday, July 15, 2017 19:25 - CONCLUSION: No acute disease. Lawrence Bruno MD Pelvis X-Ray 07/15/17 Signed Impressions: Service Date/Time: Saturday, July 15, 2017 19:30 - CONCLUSION: No definite acute abnormality seen. Lawrence Bruno MD Elbow X-Ray 07/15/17 Signed Impressions: Service Date/Time: Saturday, July 15, 2017 19:18 - CONCLUSION: Unremarkable examination of the left elbow. Lawrence Bruno MD Chest CT 07/15/17 Signed Impressions: Service Date/Time: Saturday, July 15, 2017 22:24 - CONCLUSION: 1. Negative for acute traumatic injury in the thorax. 2. Bilateral chronic appearing pleural thickening and small loculated areas of pleural fluid. 3. Moderate coronary calcifications. Bones are osteopenic. Mynor Porras MD Cervical Spine CT 07/15/17 Signed Impressions: Service Date/Time: Saturday, July 15, 2017 19:34 - CONCLUSION: 1. No acute bony injury is seen. 2. Degenerative change involving the facet joints at multiple levels. Lawrence Bruno MD Hospital Course This is a pleasant 86-year-old elderly male who is a resident from an assisted living facility, has significant past medical history of dementia and sarcoma. Patient was brought in via ambulance for evaluation of fall. Fall wasn't witnessed, it occurred while patient was in his room going to the bathroom. Patient was not able to provide any information as he has dementia. He was found by staff members. Patient had abrasions to his elbows and bruising to the left shoulder and left wrist. He also had an abrasion to his left eyebrow. He denied any chest pain, no shortness of breath. His only complaint was pain to the left hand. In the emergency room, patient was evaluated laboratory workup was completed. He was noted with an elevated troponin. The rest of the laboratory workup was essentially unremarkable. Chest x-ray show possibility of a focal consolidation or mass in the right upper lung. A CT of the chest was completed, no mass was noted, there are bilateral chronic appearing pleural thickening and small loculated areas of pleural fluid. Moderate coronary calcifications. CT of the head was negative. EKG was completed, a shows atrial fibrillation with slow ventricular response. Throughout the night, heart rate has dropped down to 38. Hospitalist spoke to the patient's son-in- law who endorsed that patient typically runs a slow heart rate of 50s, had never seen a customer equipment engineer. Denies any history of coronary artery disease, no dysrhythmia. Patient was not on any beta blockers, he was on Aricept and Namenda. Patient was pleasantly confused, he denied any chest pain, no shortness of breath, no dizziness. Followed commands appropriately. According to the son-in-law, other than the dementia the patient had been very healthy. Patient was admitted for further evaluation and treatment: 86-year-old elderly male history of dementia, presented after a fall, possible syncopal episode. Patient was admitted, the following events took place: Syncope secondary to bradycardia Symptomatic bradycardia Found with A. fib, new onset, slow ventricular response -Continuous cardiac telemetry ordered -Held Namenda and Aricept as these can cause bradycardia and syncope -Put on IVF -2-D echo ordered. EF 55-60% -continued ASA, not a candidate for anticoagulation due to falls, risk of injury. -Carotid ultrasound done-no stenosis -noted frequent pauses up to 3 secs. HR down to 30s. -Cardiology evaluated. Initially card recommended further work up for ischemic heart disease.d/w family at length, they want non invasive measure, no cath, no pacemaker, maybe STT per daughter, pt. had been referred to Dr. Almendarez for "low heart rate" as his PCP thought he may need PPM, however family held off on seeing card. -Cardiology consulted Dr. Jacobsen for poss PPM -Appreciate Dr. Jacobsen's input. Initially family declined but accepted because they wanted the pt. to rehab first and then go back to [facility]. -PPM was scheduled but when pt. was taken down, he refused. -Per Dr. jacobsen, pt. at risk for bleeding.He cancelled procedure. -Attending communicated with family, they did not want to pursue pacemaker. -d/w daughter, she discussed with brother, they requested hospice. Elevated troponin, denies chest pain NSTEMI -Serial cardiac enzymes done -continued with ASA -Lipid profile done -Appreciated card input. Ischemic workup done as the patient's family declined. Dementia -Continued to monitor -Patient was pleasantly demented, did require some restraints at night. History of recurrent sarcoma, had recent excision -Stable, continued to monitor Was ordered SCDs for DVT prophylaxis PT eval ordered. OOB to chair with assistance End of life care issues discussed at length with patient's family throughout hospitalization. They wanted DNR status. Initially they did not want to pursue hospice however as the patient refused pacemaker and he could not go back to independent living or to rehabilitation, they wanted to respect his wishes and met with hospice. They accepted hospice services and the patient was discharged in stable condition to the care center. Pt Condition on Discharge: Fair Discharge Disposition: Hospice/Med Facility Discharge Instructions DIET: Follow Instructions for: Heart Healthy Diet Activities you can perform: Weight Bearing as Deann Follow up Referrals: PCP Follow-up New Medications: Aspirin DR (Adult Aspirin EC Low Strength) 81 Mg Tabec 81 MG PO DAILY for Stroke Prevention for 30 Days, #30 TAB Continued Medications: Donepezil HCl (Aricept) 10 Mg Tablet 10 MG PO DAILY Finasteride (Proscar) 5 Mg Tab 5 MG PO DAILY for Manage Prostate Problems, #30 TAB 0 Refills Do not crush. Memantine (Namenda) 10 Mg Tab 10 MG PO BID for Alzheimer Disease, #30 TAB 0 Refills Sertraline (Zoloft) 50 Mg Tab 50 MG PO DAILY for Depression Control, #30 TAB 0 Refills Tamsulosin (Tamsulosin) 0.4 Mg Cap 0.4 MG PO DAILY for Manage Prostate Problems, #30 CAP 0 Refills [facility] Jul 22, 2017 18:52
== END 2017-07-21 18:30 | disposition hospice, inpatient (51) | DRG 281 ==
LOC: NEPC 17:52 → NEDA 22:00 → INTOOBSV 22:00 → N04B 23:56 → OBSVTOIN 07-17 13:04
PROVIDERS: ADMIT Specialist; ATTEND Specialist
DX: R00.1 Bradycardia, unspecified (principal); I21.4 Non-ST elevation (NSTEMI) myocardial infarction; E87.0 Hyperosmolality and hypernatremia; F03.90 Unspecified dementia, unspecified severity, without behavioral disturbance, psychotic disturbance, mood disturbance, and anxiety; I48.91 Unspecified atrial fibrillation; K59.00 Constipation, unspecified; R55 Syncope and collapse; I25.10 Atherosclerotic heart disease of native coronary artery without angina pectoris; S01.112A Laceration without foreign body of left eyelid and periocular area, initial encounter; N40.0 Benign prostatic hyperplasia without lower urinary tract symptoms; Z87.891 Personal history of nicotine dependence; Z66 Do not resuscitate; S51.012A Laceration without foreign body of left elbow, initial encounter; S51.022A Laceration with foreign body of left elbow, initial encounter; S51.021A Laceration with foreign body of right elbow, initial encounter; W19.XXXA Unspecified fall, initial encounter; Y92.009 Unspecified place in unspecified non-institutional (private) residence as the place of occurrence of the external cause
CPT/HCPCS: 70450; 71010; 71260; 72125; 72170; 73030; 73070; 73080; 73110; 80048; 80061; 80076; 82550; 82552; 83735; 84443; 84484; 85025; 85027; 85610; 85730; 93005; 93306; 93880; 96360; 96361; G0378; G8987-GP; G8988-GP; J7030; Q9967